=== PATIENT | male | born 1940 | race Caucasian/White ===

== ENCOUNTER 2020-08-21 11:29 | Outpatient (CLI) | payer MEDICARE, SELFPAY ==
[2020-08-21 11:51] LABS: Basophils Absolute Auto 0.06 K/mm3 (0.00-0.10); Basophils Percent Auto 0.4 % (0.0-1.0); Eosinophils Absolute Auto 0.12 K/mm3 (0.02-0.50); Eosinophils Percent Auto 0.8 % (1.0-6.0); Hematocrit 41.6 % (37.0-46.0); Hemoglobin 13.7 g/dL (12.4-15.3); Immature Granulocyte Absolute 0.15 K/mm3 (0.00-0.00); Lymphocytes Absolute Auto 1.69 K/mm3 (1.10-4.50); Lymphocytes Percent Auto 11.3 % (18.0-42.0); Mean Corpuscular HGB Conc 32.9 g/dL (32.0-36.0); Mean Corpuscular Hemoglobin 29.6 pg (27.0-31.0); Mean Corpuscular Volume 89.8 fL (78.0-102.0); Mean Platelet Volume 9.8 fl (8.7-11.0); Monocytes Absolute Auto 1.21 K/mm3 (0.10-0.90); Monocytes Percent Auto 8.1 % (2.0-11.0); Neutrophils Absolute Auto 11.7 K/mm3 (1.7-7.2); Neutrophils Percent Auto 78.4 % (50.0-70.0); Platelet Count Result 300 K/mm3 (150-420); Red Blood Count 4.63 M/mm3 (4.70-6.10); Red Cell Distribution Width 16.6 % (11.6-14.4)
[2020-08-21 12:09] LABS: Hemoglobin A1C 6.9 % (<5.7)
[2020-08-21 12:58] LABS: Alanine Aminotransferase 31 U/L (16-63); Albumin Level 3.7 g/dL (3.4-5.0); Alkaline Phosphatase 59 U/L (46-116); Anion Gap 15 mmol/L (8-16); Aspartate Amino Transferase 19 U/L (15-37); Bilirubin,Total 0.5 mg/dL (0.00-1.00); Blood Urea Nitrogen 31 mg/dL (7-18); Calcium 9.4 mg/dL (8.5-10.1); Carbon Dioxide 25 mmol/L (21-32); Chloride 104 mmol/L (98-108); Cholesterol 125 mg/dL (0-200); Estimated Glomerular Filt Rate 40; Glucose 162 mg/dL (70-99); HDL Direct 36 mg/dL (40-60); LDL Cholesterol Calculated 75 mg/dL (<130); Osmolality Calculated 308 mOsm/kg (285-295); Potassium 3.8 mmol/L (3.5-5.1); Sodium 144 mmol/L (136-145); Total Protein 6.7 g/dL (6.4-8.2); Triglycerides 70 mg/dL (0-150)
[2020-08-21 12:59] LABS: Thyroid Stimulating Hormone Reflex 1.36 u/IU/mL (0.36-3.74)
== END 2020-08-21 11:30 | disposition home or self-care (01) ==
LOC: CHSLAB 11:33
PROVIDERS: PCP Family Medicine; Visit Provider Family Medicine
DX: E11.9 Type 2 diabetes mellitus without complications (principal); I10 Essential (primary) hypertension
CPT/HCPCS: 36415; 80053; 80061; 83036; 84443; 85025

== ENCOUNTER 2023-10-25 09:31 | Emergency (ER) | payer MEDICARE, SELFPAY ==
--- NOTE | ~2023-10-25 | XR_ITS ---
EXAMINATION: XR foot LT min 3V DATE: 10/25/2023 10:20 INDICATION: Left foot injury. TECHNIQUE: 4 views of left foot were obtained. COMPARISON: None. FINDINGS: Bone alignment is normal. No fracture. There is diffuse osteopenia. There is severe osteoar thritis of first metatarsophalangeal joint. There are dystrophic calcifications around first metatars ophalangeal joint. There is mild osteoarthritis of some of the interphalangeal joints. There is an en thesophyte of posterior aspect of calcaneal tuberosity. IMPRESSION: 1. Polyarticular osteoarthritis. Reviewed, dictated and finalized at location A.
--- NOTE | ~2023-10-25 | XR_ITS ---
EXAMINATION: XR foot RT min 3V DATE: 10/25/2023 10:20 INDICATION: Right foot injury. TECHNIQUE: 4 views of right foot were obtained. COMPARISON: None. FINDINGS: Bone alignment is normal. No fracture. There is diffuse osteopenia. There is severe osteoar thritis of first metatarsophalangeal joint with loose body. There are dystrophic calcifications aroun d first metatarsophalangeal joint. There is an enthesophyte at plantar aspect of calcaneal tuberosity . IMPRESSION: 1. Severe osteoarthritis of first metatarsophalangeal joint with loose body. Reviewed, dictated and finalized at location A.
[2023-10-25 09:37] VITALS: BP 142/85; PULSE 127; RESP 14; TEMP 36.3; O2SAT 96
--- NOTE | 2023-10-25 09:53 | ED.WOUNDLAC ---
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 Patient states that he has nurses from [facility] come 3 times per week to apply dressings on his feet and legs, patient has some weeping form his legs noted with area lateral aspect of left leg with whitish open wound 2cm diameter with clear fluid drainage also. He has no open areas on feet bilateral large toenails deformed and left great toe nail loose and right great toenail has fungal appearance.Patient reports that he has had previous back surgery and his legs are weak and he gets around most of the time in wheelchair or motorized chair at home. Patient is diabetic and states that he has peripheral neuropathy to his feet reports this morning blood sugar was 192 per finger stick. Patient reports that he usually takes one pain pill in morning and one in PM only Onset (ago): day(s) (last night) Location: other (feet) Extremity Location: Right: foot Associated symptoms: loss of feeling/numbness (neuropathy) Related Data Home Medications Medication Instructions Recorded Confirmed atenolol 50 mg-chlorthalidone 25 1 tablet PO DAILY 08/21/20 01/13/21 mg tablet atorvastatin 20 mg tablet 20 mg PO DAILY 08/21/20 01/13/21 blood sugar diagnostic #10 ea 08/21/20 01/13/21 finasteride 5 mg tablet 5 mg PO DAILY 08/21/20 01/13/21 furosemide 20 mg tablet 20 mg PO DAILY 08/21/20 01/13/21 hydrocodone 10 mg-acetaminophen 2 tablet PO Q4-6H 08/21/20 01/13/21 325 mg tablet lisinopril 40 mg tablet 80 mg PO DAILY 08/21/20 01/13/21 metformin 500 mg tablet 500 mg PO 08/21/20 01/13/21 potassium chloride 20 mEq 20 meq PO DAILY 08/21/20 01/13/21 tablet,extended release(part/cryst) sitagliptin phosphate 50 mg tablet 50 mg PO DAILY 08/21/20 01/13/21 Allergies Allergy/AdvReac Type Severity Reaction Status Date / Time No Known Allergies Allergy Verified 05/12/21 07:38 Review of Systems Review of Systems: CONSTITUTIONAL: Denies fever, chills, or sweats. EYES: Denies visual changes, redness, or discharge. ENT: Denies rhinorrhea, congestion, sore throat, or otalgia. CARDIOVASCULAR: Denies chest pain, palpitations, or edema. RESPIRATORY: Denies cough or dyspnea. GASTROINTESTINAL: Denies abdominal pain, nausea, vomiting, or diarrhea. GENITOURINARY: Denies dysuria or hematuria. SKIN: positive for weeping tissue from bilateral legs with whitish open area left lateral leg. MUSCULOSKELETAL: Reports chronic lower back pain back and neuropathy to his bilateral feet or myalgia. NEUROLOGIC: Denies headache, numbness, or weakness. PSYCHIATRIC: Denies anxiety or depression. All systems reviewed & are unremarkable except as noted in HPI and below PMFSH Past Medical History Medical History Chronic back pain Chronic kidney disease (CKD) stage G3b/A1, moderately decreased glomerular filtration rate (GFR) between 30-44 mL/min/1.73 square meter and albuminuria creatinine ratio less than 30 mg/g Constipation due to opioid therapy Decreased appetite Edema of left lower extremity Fall at home Hip pain Hypertension Leukocytosis, unspecified Right knee pain Type 2 diabetes mellitus Surgical History Surgical History H/O arthroscopy of right knee History of back surgery Social History Social History Smoking status: Never smoker Alcohol intake: never Substance use: current Substance use type: opiates Last use: for chronic
--- NOTE | 2023-10-25 11:11 | PC.NURSE ---
Bilateral lower legs are both weeping. Skin tight. Does not keep legs elevated. Wounds cleansed with technicare, telfa and guaze applied.
== END 2023-10-25 11:13 | disposition home or self-care (01) ==
PROVIDERS: Emergency Provider Registered Nurse; PCP Family Medicine
DX: M79.672 Pain in left foot (principal); M79.671 Pain in right foot; L03.116 Cellulitis of left lower limb; L03.115 Cellulitis of right lower limb; E11.42 Type 2 diabetes mellitus with diabetic polyneuropathy; I12.9 Hypertensive chronic kidney disease with stage 1 through stage 4 chronic kidney disease, or unspecified chronic kidney disease; E11.22 Type 2 diabetes mellitus with diabetic chronic kidney disease; N18.32 Chronic kidney disease, stage 3b; Z79.84 Long term (current) use of oral hypoglycemic drugs
CPT/HCPCS: 73630; 99214; G0463

== ENCOUNTER 2023-12-12 11:00 | Emergency (ER) | payer MEDICARE, SELFPAY ==
--- NOTE | ~2023-12-12 | US_ITS ---
TESTICULAR ULTRASOUND (Doppler ultrasound interrogation techniques used as needed for this exam.) Ordering provider: Navi Zamora MD History: . bilateral scrotal swelling . Comparison: None. FINDINGS: TESTICLES: Normal in size. The right measures 3.7x 2.8x 2.7 cm and the left measures 4x 2.5x 2.8 cm. Normal echogenicity bilaterally without mass lesion. Normal Doppler flow bilaterally. Hypoechoic are a with hyperechoic center is seen in the left scrotal. EPIDIDYMIDES: Normal in size. The right measures 1 cm and the left 0.8 cm. Normal echogenicity bilat erally. Both demonstrate normal Doppler flow. Cyst is seen in the right epididymis measuring 0.6 x 5. 5 cm. HYDROCELE: Small right and moderate left VARICOCELE: None. OTHER ABNORMALITY: Edematous scrotal tissue. IMPRESSION: scrotal hypoechoic area with hyperechoic center which may indicate a mass versus a hematoma. Other di fferential is not excluded. Follow-up advised. Right epididymal cyst. Edematous scrotal wall Bilatera l hydrocele. Otherwise, normal testicular ultrasound. Reviewed, dictated and finalized at location A. IMPRESSION: scrotal hypoechoic area with hyperechoic center which may indicate a mass versu s a hematoma. Other differential is not excluded. Follow-up advised. Right epid idymal cyst. Edematous scrotal wall Bilateral hydrocele. Otherwise, normal test icular ultrasound.
[2023-12-12 11:00] VITALS: BP 170/94; PULSE 82; RESP 18; TEMP 36.2; O2SAT 96
--- NOTE | 2023-12-12 11:03 | ED.MALEGU ---
HPI - Male Genitourinary General Chief complaint: Urogenital-Male Stated complaint: testicular swelling Time Seen by Provider: 12/12/23 11:02 Source: patient Mode of arrival: ambulatory Limitations: no limitations History of Present Illness HPI Narrative: Patient is an 83-year-old male with a bilateral scrotal swelling for the past week. He uses a urinal plastic to urinate typically and he got himself a small nidus of opening from the plastic rim. It has started to swell and got worse over the past week. No fever or chills. No testicle pain. He can pull the penis through the swelling to urinate. Circumcised. Complaint: other ( Scrotal swelling bilaterally for 1 week) Onset (ago): week(s) (1) Duration: constant Location: right testicle ( scrotum) and left testicle ( scrotum) Severity: mild Severity scale (1-10): 1 Quality: dull Relieving factors: none Exacerbating factors: none Context: other ( patient uses a plastic urinal and appears that he has nipped the skin recently) Associated symptoms: Reports discharge ( nidus of infection area has slight discharge) Related Data Home Medications Medication Instructions Recorded Confirmed atorvastatin 20 mg tablet 20 mg PO DAILY 08/21/20 12/12/23 blood sugar diagnostic #10 ea 08/21/20 01/13/21 finasteride 5 mg tablet 5 mg PO DAILY 08/21/20 12/12/23 furosemide 20 mg tablet 20 mg PO DAILY 08/21/20 12/12/23 lisinopril 40 mg tablet 80 mg PO DAILY 08/21/20 12/12/23 metformin 500 mg tablet 500 mg PO DAILY 08/21/20 12/12/23 potassium chloride 20 mEq 20 meq PO DAILY 08/21/20 12/12/23 tablet,extended release(part/cryst) aspirin 81 mg tablet 81 mg PO DAILY 12/12/23 12/12/23 oxycodone-acetaminophen 10 mg-325 1 tablet PO BID 12/12/23 12/12/23 mg tablet tamsulosin 0.4 mg capsule 0.4 mg PO DAILY 12/12/23 12/12/23 Allergies Allergy/AdvReac Type Severity Reaction Status Date / Time No Known Allergies Allergy Verified 12/12/23 11:53 Review of Systems Review of Systems: All systems reviewed & are unremarkable except as noted in HPI and below Constitutional: Constitutional: Reports no additional constitutional complaints Eyes: Eyes: Reports no additional eye complaints ENT: Reports system reviewed and no additional complaints, except as documented Cardiovascular: Cardiovascular: Reports no additional cardiovascular complaints Respiratory: Respiratory: Reports no additional respiratory complaints Gastrointestinal: Gastrointestinal: Reports no additional gastrointestinal complaints Genitourinary: Genitourinary: Reports no additional male genitourinary complaints Musculoskeletal: Musculoskeletal: Reports no additional musculoskeletal complaints Integumentary/Breasts: Skin/Breast: Reports system reviewed and no additional complaints, except as docu Neurologic: Reports system reviewed and no additional complaints, except as documented Psychiatric: Psychiatric: Reports no additional psychiatric complaints Endocrine: Endocrine: Reports no additional endocrine complaints Hematologic/Lymphatic: Hematologic/Lymphatic: Reports no additional hematologic/lymphatic complaints Allergic/Immunologic: Allergic/Immunologic: Reports no additional allergic/immunologic complaints PMFSH Past Medical History Medical History Chronic back pain Chronic kidney disease (CKD) stage G3b/A1, moderately decreased glomerular filtration rate (GFR) between 30-44 mL/min/1.73 square meter and albuminuria creatinine ratio less than 30 mg/g Constipation due to opioid therapy Decreased appetite Edema of left lower extremity Fall at home Hip pain Hypertension Leukocytosis, unspecified Right knee pain Type 2 diabetes mellitus Surgical History Surgical History H/O arthroscopy of right knee History of back surgery Social History Social History (Reviewed 12/12/23 @ 11:30 by Navi Zamora
[2023-12-12] MEDS: predniSONE 20 MG TABLET 40 MG PO (12:02)
[2023-12-12 12:05] VITALS: BP 158/88; PULSE 85; RESP 16; TEMP 36.7; O2SAT 97
[2023-12-12] MEDS: cefTRIAXone 1 GM, LIDOCAINE HCL 1% LOCAL INJ 2.1 ML IM (12:05)
== END 2023-12-12 12:30 | disposition home or self-care (01) ==
PROVIDERS: Emergency Provider Emergency Medicine; PCP Family Medicine
DX: L03.314 Cellulitis of groin (principal); N50.89 Other specified disorders of the male genital organs; I12.9 Hypertensive chronic kidney disease with stage 1 through stage 4 chronic kidney disease, or unspecified chronic kidney disease; E11.22 Type 2 diabetes mellitus with diabetic chronic kidney disease; N18.32 Chronic kidney disease, stage 3b; Z79.899 Other long term (current) drug therapy; Z79.82 Long term (current) use of aspirin; Z79.891 Long term (current) use of opiate analgesic; Z79.84 Long term (current) use of oral hypoglycemic drugs
CPT/HCPCS: 76870; 93976; 96372; 99284; J0696; J2003; J7512

== ENCOUNTER 2023-12-14 15:42 | Emergency (ER) | payer MEDICARE, SELFPAY ==
[2023-12-14] VITALS (25 sets, daily range): BP systolic 126–184; BP diastolic 67–118; PULSE 78–93; RESP 12–31; TEMP 36.3; O2SAT 92–98
--- NOTE | ~2023-12-14 | XR_ITS ---
XR chest 1V portable Ordering provider: César Menendez MD History: 83 years Male with . edema . Comparison: None. FINDINGS: MEDIASTINUM: The cardiac silhouette is slightly enlarged. Congestive david. LUNGS: No infiltrates, effusions or pneumothorax. Bilateral interstitial changes. OTHER: No free air under the diaphragm. IMPRESSION: Cardiomegaly with congestive david and bilateral interstitial changes which may indicate congestive he art failure and pulmonary edema. Clinical correlation advised. Pneumonitis cannot be occluded. Reviewed, dictated and finalized at location A. IMPRESSION: Cardiomegaly with congestive david and bilateral interstitial changes which may indicate congestive heart failure and pulmonary edema. Clinical correlation adv ised. Pneumonitis cannot be occluded.
--- NOTE | 2023-12-14 16:22 | ECG_ITS ---
Test Date: 2023-12-14 16:50:57 Measurements Intervals [place] Rate: 79 P: 62 TN: 183 QRS: 11 QRSD: 93 T: 68 QT: 401 QTc: 460 Interpretive Statements SINUS RHYTHM WITH OCCASIONAL SUPRAVENTRICULAR PREMATURE COMPLEXES POSSIBLE RIGHT VENTRICULAR CONDUCTION DELAY [RSR (QR) IN V1/V2] ABNORMAL ECG No previous ECG available for comparison Electronically Signed On 12-18-2023 07:30:54 CDT by César Dunn M.D.
[2023-12-14 16:48] LABS: Basophils Absolute Auto 0.02 K/mm3 (0.00-0.10); Basophils Percent Auto 0.2 % (0.0-1.0); Eosinophils Absolute Auto 0.01 K/mm3 (0.02-0.50); Eosinophils Percent Auto 0.1 % (1.0-6.0); Hematocrit 28.7 % (37.0-46.0); Hemoglobin 9.1 g/dL (12.4-15.3); Immature Granulocyte Absolute 0.19 K/mm3 (0.00-0.00); Immature Granulocyte Percent A 1.5 % (0.0-0.0); Lymphocytes Absolute Auto 0.39 K/mm3 (1.10-4.50); Lymphocytes Percent Auto 3.1 % (18.0-42.0); Mean Corpuscular HGB Conc 31.7 g/dL (32-36); Mean Corpuscular Hemoglobin 24.9 pg (27.0-31.0); Mean Corpuscular Volume 78.4 fL (78.0-102.0); Mean Platelet Volume 9.4 fl (8.7-11.0); Monocytes Absolute Auto 0.42 K/mm3 (0.10-0.90); Monocytes Percent Auto 3.3 % (2.0-11.0); Neutrophils Absolute Auto 11.61 K/mm3 (1.70-7.20); Neutrophils Percent Auto 91.8 % (50.0-70.0); Platelet Count Result 380 K/mm3 (150-420); Red Blood Count 3.66 M/mm3 (4.70-6.10); Red Cell Distribution Width 16.6 % (11.6-14.4); White Blood Count 12.6 K/mm3 (4.8-10.8)
[2023-12-14 17:07] LABS: Lactic Acid Reflex 2.5 mmol/L (0.4-2.0)
[2023-12-14 17:16] LABS: Alanine Aminotransferase 20 U/L (16-63); Albumin Level 2.7 g/dL (3.4-5.0); Alkaline Phosphatase 72 U/L (46-116); Anion Gap 10 mmol/L (4-12); Aspartate Amino Transferase 48 U/L (15-37); Bilirubin,Total 0.7 mg/dL (0.00-1.00); Blood Urea Nitrogen 75 mg/dL (7-18); Calcium 8.4 mg/dL (8.5-10.1); Carbon Dioxide 29 mmol/L (21-32); Chloride 102 mmol/L (98-108); Estimated CRCL calculation 21 ml/min; Estimated Glomerular Filt Rate 25; Glucose 175 mg/dL (70-99); Osmolality Calculated 318 mOsm/kg (285-295); Potassium 4.8 mmol/L (3.5-5.1); Sodium 141 mmol/L (136-145); Total Protein 6.1 g/dL (6.4-8.2)
[2023-12-14 17:19] LABS: CRP 0.8 mg/dL (0.0-0.9); NT Pro B Type Natriuretic Pept 25150 pg/mL (0-450)
[2023-12-14 17:39] LABS: Add Urine Microscopic? YES; Appearance Urine Clear (Clear); Bilirubin Urine Negative (Negative); Blood Urine Trace-intact (Negative); Color Urine Light Yellow (Yellow); Glucose Urine UA Negative (Negative); Ketones Urine Negative (Negative); Leukocyte Esterase Ur Negative LEU/UL (Negative); Nitrate Urine Negative (Negative); Protein Urine Trace (Negative); Urobilinogen Urine 0.2 mg/dL (0.2-1.0); pH Urine 5.5 (5.0-8.0)
[2023-12-14 17:47] LABS: Bacteria Urine Trace /hpf; Hyaline Casts Urine 0-2 /lpf; RBC Urine 0-2 /hpf (0-2); Squamous Epithelial Cell Urine None seen /hpf (Few); WBC Urine 0-3 /hpf (0-3)
[2023-12-14] MEDS: ASPIRIN 81 MG CHEWABLE TABLET 324 MG PO (18:02)
[2023-12-14] MEDS: PANTOPRAZOLE SODIUM IV 40 MG VIAL 80 MG IV PUSH (18:02)
[2023-12-14] MEDS: FUROSEMIDE INJ 40 MG/4 ML VIAL IV PUSH (18:37)
[2023-12-14 18:46] LABS: Reflex Lactic Acid Yes or No Add Lactic
[2023-12-14 19:09] LABS: Troponin I 101.7 ng/L (0.00-60.4)
--- NOTE | 2023-12-14 19:11 | ED.WEAKNESS ---
HPI - Weakness General Chief complaint: Weakness Stated complaint: swelling Time Seen by Provider: 12/14/23 15:46 Source: patient and family Mode of arrival: wheelchair Limitations: no limitations History of Present Illness HPI Narrative: this is an 83-year-old male with a history of chronic wound secondary to lower extremity edema with history of diabetes with hypertension, patient with some generalized weakness and has not been able to follow-up with his doctor because it was difficult for family to get him out of and into a vehicle. Presents to the ER with some generalized weakness, swelling in his lower extremities and into his lower back and testicles. There is currently no shortness of breath, but does have some what he describes as heartburn, denies chest pain or pressure no fever chills no nausea vomiting. Complaint: generalized weakness Onset (ago): week(s) Duration: constant Location: generalized Severity: moderate Relieving factors: none Exacerbating factors: none Related Data Home Medications Medication Instructions Recorded Confirmed atorvastatin 20 mg tablet 20 mg PO DAILY 08/21/20 12/14/23 blood sugar diagnostic #10 ea 08/21/20 12/14/23 finasteride 5 mg tablet 5 mg PO DAILY 08/21/20 12/14/23 furosemide 20 mg tablet 20 mg PO DAILY 08/21/20 12/14/23 lisinopril 40 mg tablet 80 mg PO DAILY 08/21/20 12/14/23 metformin 500 mg tablet 500 mg PO DAILY 08/21/20 12/14/23 potassium chloride 20 mEq 20 meq PO DAILY 08/21/20 12/14/23 tablet,extended release(part/cryst) aspirin 81 mg tablet 81 mg PO DAILY 12/12/23 12/14/23 tamsulosin 0.4 mg capsule 0.4 mg PO DAILY 12/12/23 12/14/23 albuterol sulfate 90 mcg/actuation See Rx Instructions .Route .COMPLEX 12/14/23 12/14/23 aerosol inhaler Allergies Allergy/AdvReac Type Severity Reaction Status Date / Time No Known Allergies Allergy Verified 12/14/23 16:55 Review of Systems Review of Systems: All systems reviewed & are unremarkable except as noted in HPI and below PMFSH Past Medical History Medical History Chronic back pain Chronic kidney disease (CKD) stage G3b/A1, moderately decreased glomerular filtration rate (GFR) between 30-44 mL/min/1.73 square meter and albuminuria creatinine ratio less than 30 mg/g Constipation due to opioid therapy Decreased appetite Edema of left lower extremity Fall at home Hip pain Hypertension Leukocytosis, unspecified Right knee pain Type 2 diabetes mellitus Surgical History Surgical History H/O arthroscopy of right knee History of back surgery Social History Social History Smoking status: Never smoker Alcohol intake: never Substance use: current Substance use type: opiates Last use: for chronic pain Living arrangements: alone Occupation/Education: retired Gender identity (if verbalized by the patient): Male Exam Const: General: no acute distress Nutritional Appearance: obese Orientation/consciousness: patient oriented x3 Limitations: physical limitations Eyes: Conjunctivae: conjunctivae normal Pupils: Equal, round and reactive pupils present Neck: Neck: normal visual inspection, no lymphadenopathy and no meningeal signs Chest: Chest palpation & inspection: normal inspection of the chest Resp: Effort & Inspection: normal respiratory effort Auscultation: clear to auscultation bilaterally Cardio: Rate: regular rate Rhythm: regular rhythm GI: GI Palp: Yes Soft to palpation Auscultation: normal bowel sounds : General: Yes bladder normal to palpation Skin: Wounds: wounds noted Neuro: General: patient oriented x3 Cranial nerves: Yes Nystagmus not present Extrem: General: edema Course Course Emergency Course: Patient presents with generalized weakness and lower extremity edema blood work performed shows a BNP o
[2023-12-14 21:16] LABS: Glucose Point of Care 192 mg/dl (65-105)
--- NOTE | 2023-12-14 23:52 | PC.NURSE ---
PT' FAMILY EXPRESSED CONCERNS REGARDING PINK TINGED URINE AND CHF. DR CORRAL TO BS TO DISCUSS WITH FAMILY.
[2023-12-15 00:01] VITALS: BP 131/81; PULSE 76; RESP 15; TEMP 37.1; O2SAT 94
--- NOTE | 2023-12-16 13:51 | PC.NURSE ---
blood culture reports x2 reviewed, preliminary reports show no growth to date
--- NOTE | 2023-12-17 14:19 | PC.NURSE ---
preliminary blood cultures x2 reviewed. no growth to date.
--- NOTE | 2023-12-20 12:17 | PC.NURSE ---
FINAL BLOOD CULTURE RESULTS X2: NO GROWTH AFTER 5 DAYS.
== END 2023-12-15 00:35 | disposition short-term general hospital (02) ==
PROVIDERS: Emergency Provider Emergency Medicine; PCP Family Medicine
DX: R60.1 Generalized edema (principal); R79.89 Other specified abnormal findings of blood chemistry; I13.0 Hypertensive heart and chronic kidney disease with heart failure and stage 1 through stage 4 chronic kidney disease, or unspecified chronic kidney disease; I50.9 Heart failure, unspecified; E11.22 Type 2 diabetes mellitus with diabetic chronic kidney disease; N18.32 Chronic kidney disease, stage 3b; Z79.84 Long term (current) use of oral hypoglycemic drugs; Z79.899 Other long term (current) drug therapy
CPT/HCPCS: 36415; 71045; 80053; 81001; 82948; 83605; 83880; 84484; 85025; 86140; 87040; 93005; 96374; 96375; 99285; A9270; J1940; J2470

== ENCOUNTER 2023-12-15 00:12 | Inpatient (IN) | payer MEDICARE, SELFPAY ==
[2023-12-15] VITALS (18 sets, daily range): BP systolic 134–152; BP diastolic 58–75; PULSE 70–85; RESP 0–20; TEMP 36.7–36.9; O2SAT 97–100; BMI 31.6
--- NOTE | 2023-12-15 | ECHO_ITS ---
Patient Info Name: Sachin Shaw Age: 83 years : 1940 Gender: Male Ht: 70 in Wt: 220 lbs BSA: 2.25 m2 HR: 70 bpm BP: 144 / 75 mmHg Heart Rhythm: Sinus Rhythm Technical Quality: Good Exam Date: 12/15/2023 10:06 AM Exam Location: Echo Lab Patient Status: Inpatient Admit Date: 12/15/2023 Staff Ordering Physician: Ebonie Davis MD Header Boss: Mack Oshea RDCS Attending Provider: Ebonie Davis MD Referring Physician: Susan LAUGHLIN; Exam Type: CA echo doppler color flow Study Info Indications - SWELLING Complete two-dimensional, color flow and Doppler transthoracic echocardiogram is performed. Summary 1. Complete two-dimensional, color flow and Doppler transthoracic echocardiogram is performed. 2. The left ventricle is normal size. There is moderate concentric left ventricular hypertrophy. The left ventricular systolic function is moderately reduced. LVEF is estimated to be 35-40%. 3. The aortic valve is sclerotic. There is no aortic stenosis or aortic regurgitation. It is difficult to determine the number of leaflets in this study. Left Ventricle The left ventricle is normal size. There is moderate concentric left ventricular hypertrophy. The left ventricular systolic function is moderately reduced. LVEF is estimated to be 35-40%. Right Ventricle The right ventricle is normal size with reduced systolic function. Left Atria The left atrium is normal size. Right Atria The right atrium is normal size. Aortic Valve The aortic valve is sclerotic. There is no aortic stenosis or aortic regurgitation. It is difficult to determine the number of leaflets in this study. Pulmonic Valve The pulmonic valve is normal. There is trace pulmonic valve regurgitation. Mitral Valve The mitral valve is sclerotic. There is mild mitral regurgitation. Tricuspid Valve The tricuspid valve is normal. Pericardium/Pleural Pericardium is normal in appearance with no evidence for significant pericardial effusion. Inferior Vena Cava Inferior vena cava is not well visualized. Left Ventricular Outflow Tract Name Value Normal LVOT 2D LVOT Diameter 2.2 cm LVOT Doppler LVOT Peak Gradient 4 mmHg LVOT Mean Gradient 2 mmHg LVOT VTI 16 cm LVOT VTI/AV VTI Ratio 0.7 LVOT Stroke Volume 61 ml LVOT CO 3.8 l/min LVOT CI 1.7 l/min/m2 Pulmonic Valve Name Value Normal PV Doppler PV Peak Gradient 2 mmHg Mitral Valve Name Value Normal MV Doppler MV Decel [place] 500 cm/s2
--- NOTE | ~2023-12-15 | MR_ITS ---
EXAMINATION: MR lumbar spine wo con DATE: 12/17/2023 07:47 INDICATION: Low back pain with lower extremity weakness TECHNIQUE: Magnetic resonance imaging (MRI) of the lumbar spine was performed without intravenous con trast. Sequences included sagittal T2-weighted FSE, sagittal T2-weighted FS FSE, sagittal T1-weighted FSE, and axial T2-weighted FSE. COMPARISON: None FINDINGS: 15 degrees lumbar levoscoliosis. 4 mm anterolisthesis T11 on T12, 4 mm retrolisthesis L1 on L3, 4 mm retrolisthesis L2 on L3, 2 mm anterolisthesis L4 on L5 and a millimeter retrolisthesis L5 on S1. Ther e is also a 6 mm left lateral listhesis L3 on L4. Severe right-sided predominant disc height loss at L2-L3 and L3-L4 with associated degenerative endplate remodeling resulting in mild right-sided verteb ral body height loss at L2 and L3. There is also mild associated fibrovascular degenerative endplate changes at L2-L3 and L3-L4. Severe disc height loss at L5-S1, moderate disc height loss at T12-L1, L1 -L2 and mild disc height loss at L4-L5. Marrow signal is otherwise unremarkable. The conus medullaris terminates at L1. Increased cord signal likely related to severe central canal stenosis and secondar y myelomalacia at T11-T12. See separate thoracic spine report for further detail.. Paravertebral soft tissues are unremarkable. The following disc levels are specifically discussed: T12-L1: Disc is bulging. There is severe bilateral facet joint osteoarthritis. There is mild right an d moderate left neural foraminal stenosis. There is mild central canal stenosis. L1-L2: Disc is bulging with annular fissure. There is moderate bilateral facet joint osteoarthritis. There is moderate left and moderate to severe right neural foraminal stenosis. There is moderate to s evere central canal stenosis. L2-L3: Disc is bulging with annular fissure. There is hypertrophy of the ligamentum flavum. There is moderate bilateral facet joint osteoarthritis. There is moderate left and severe right neural forami nal stenosis. There is severe central canal stenosis. L3-L4: Disc is bulging with annular fissure. There is moderate to severe left and severe right facet joint osteoarthritis. There is moderate bilateral neural foraminal stenosis. There is moderate centra l canal stenosis. L4-L5: Disc is bulging with annular fissure. There is severe bilateral facet joint osteoarthritis. Th ere is moderate to severe bilateral neural foraminal stenosis. There is mild central canal stenosis. L5-S1: Disc is bulging with annular fissure. There is moderate right and severe left facet joint oste oarthritis. There is moderate to severe bilateral neural foraminal stenosis. There is no central tommy l stenosis. IMPRESSION: 1. 15 degrees lumbar levoscoliosis with severe spondylosis. Reviewed, dictated and finalized at location A.
--- NOTE | ~2023-12-15 | US_ITS ---
EXAMINATION: US renal BI DATE: 12/15/2023 09:01 INDICATION: Acute renal insufficiency TECHNIQUE: Multiple ultrasound grayscale images of the kidneys were obtained. COMPARISON: None. FINDINGS: The right kidney measures 10.6 x 5.9 x 5.8 cm. The left kidney measures 11.6 x 6.0 x 5.6 cm. The kidn eys demonstrate normal echogenicity. There is no hydronephrosis in either kidney. No stones identifi ed. The bladder is nonvisualized, likely decompressed with a Walter catheter reportedly in place. IMPRESSION: 1. Normal kidneys without hydronephrosis. Reviewed, dictated and finalized at location A.
--- NOTE | ~2023-12-15 | XR_ITS ---
EXAMINATION: XR chest 1V portable DATE: 12/15/2023 12:49 INDICATION: Congestive heart failure. TECHNIQUE: A single frontal view of the chest was obtained. COMPARISON: Chest single view 12/14/2023 FINDINGS: There is a diffuse interstitial pattern in the lungs, consistent mild pulmonary edema. No p leural effusion or pneumothorax. The heart size is normal. IMPRESSION: 1. Mild pulmonary edema. Reviewed, dictated and finalized at location A. IMPRESSION: 1. Mild pulmonary edema.
--- NOTE | ~2023-12-15 | MR_ITS ---
EXAMINATION: MR cervical spine wo con DATE: 12/17/2023 07:47 INDICATION: Back pain with lower extremity weakness TECHNIQUE: Magnetic resonance imaging (MRI) of the cervical spine was performed without intravenous c ontrast. Sequences included sagittal T2-weighted FSE, sagittal T2-weighted FS FSE, sagittal T1-weight ed FSE, axial MERGE and axial T2-weighted FSE. COMPARISON: None FINDINGS: Straightening of the normal cervical lordosis. Vertebral body heights are normal. Severe disc height loss at C5-C6 and moderate disc height loss at C6-C7 with minimal fibrovascular degenerative endplat e changes anteriorly at both levels. Marrow signal is otherwise unremarkable. Disc desiccation withou t significant disc height loss at the remaining cervical levels. Small region of increased T2 signal slightly to the right of the center of the cord at the level of C4-C5 and measuring up to 2 mm in ma ximal transaxial dimension. Cervical soft tissues are unremarkable. The following disc levels are spe cifically discussed: C2-C3: The disc does not extend beyond the endplate margin. There is no uncovertebral joint osteoarth ritis. There is moderate left and severe right facet joint osteoarthritis. There is mild left and min imal right neural foraminal stenosis. There is no central canal stenosis. C3-C4: Disc is bulging. There is mild left uncovertebral joint osteoarthritis. There is moderate righ t and severe left facet joint osteoarthritis. There is moderate left and mild to moderate right neura l foraminal stenosis. There is mild central canal stenosis measuring 9 mm AP in the mid sagittal plan e and with slight indention of the ventral surface of the cord. C4-C5: Disc is bulging. There is mild bilateral uncovertebral joint osteoarthritis. There is mild rig ht and severe left facet joint osteoarthritis. There is mild right and moderate left neural foraminal stenosis. There is mild central canal stenosis. C5-C6: Disc is bulging with superimposed annular fissure and right paracentral disc extrusion with di sc material extending up to 4 mm cephalad to the level of the inferior endplate of C5. There is sever e bilateral uncovertebral joint osteoarthritis. There is mild right and moderate left facet joint ost eoarthritis. There is moderate bilateral, left greater than right neural foraminal stenosis. There is mild central canal stenosis but with prominent mass effect with indentation of the right ventral coral face of the cord resulting from the disc extrusion. C6-C7: Disc is bulging. There is severe bilateral uncovertebral joint osteoarthritis. There is mild r ight and moderate left facet joint osteoarthritis. There is moderate bilateral neural foraminal steno sis. There is mild central canal stenosis flattening of the ventral surface of the cord. C7-T1: The disc does not extend beyond the endplate margin. There is mild right and moderate left unc overtebral joint osteoarthritis. There is severe bilateral facet joint osteoarthritis. There is mild right and mild to moderate left neural foraminal stenosis. There is no central canal stenosis. IMPRESSION: 1. Severe cervical spondylosis greatest at C5-C6 and C6-C7 with prominent right paracentral disc extr usion at the former level which significantly indents the right ventral surface of the cord. 2. small focus of increased T2 signal at the right side of the cord at the level of C4-C5 likely rela hieu to myelomalacia. Reviewed, dictated and finalized at location A. IMPRESSION: 1. Severe cervical spondylosis greatest at C5-C6 and C6-C7 with prominent right paracentral disc extrusion at the former level which significantly indents the right ventral surface of the cord. 2. small focus of increased T2 signal at the right side of the cord at the leve l of C4-C5 likely re
--- NOTE | ~2023-12-15 | MR_ITS ---
EXAMINATION: MR thoracic spine wo con DATE: 12/17/2023 07:47 INDICATION: Back pain with lower extremity weakness TECHNIQUE: Magnetic resonance imaging (MRI) of the thoracic spine was performed without intravenous c ontrast. Sagittal localizer T1-weighted FSE of the cervicothoracic spine was obtained. Thoracic spine sequences included sagittal T2-weighted FSE, sagittal T1-weighted SE, Sagittal T2-weighted FS FSE, a nd axial T2-weighted FSE. COMPARISON: None FINDINGS: Mild S-shaped thoracic scoliosis with 12 degrees upper thoracic levocurvature and 15 degrees mid to l ower thoracic dextrocurvature. 4 mm anterolisthesis T11 on T12. Vertebral body heights are normal. No rmal marrow signal.Moderate to severe disc height loss at T8-T9 and T9-T10, moderate to severe left s estrada predominant disc height loss at T11-T12, moderate disc height loss [id number], T7-T8and with left- sided predominance atT5-T6, T6-T7and T7-T8and with right-sided predominance atT3-T4. Mild disc height loss at the remaining thoracic levels. Additional severe disc height loss at C7-T1. Along with the anterolisthesis of T11 on T12 there is annular fissure and disc bulge along with sever e bilateral facet osteoarthritis contributing to the severe central canal stenosis at this level. The re is associated increased T2 signal in the cord at this level with likely secondary myelomalacia. Th e remainder of the thoracic spinal cord signal is normal. Left T2-T3 paracentral disc protrusion which mildly indents the ventral surface of the cord with mild central canal stenosis. Minimal central disc protrusion at T3-T4 without central canal stenosis. [place] ular fissure with right paracentral disc extrusion at T7-T8 with disc material extending 6 cm cephala d to the inferior endplate of T7 and 8 mm caudal to the superior endplate of T8. This indents the rig ht ventral surface of the cord and mild central canal stenosis. Minimal central disc protrusion witho ut central canal stenosis at T8-T9. Disc bulges resulting in mild central canal stenosis at T9-T10, T 10-T11 and T12-L1. There is multilevel moderate upper thoracic to severe lower thoracic facet osteoarthritis. This contr ibutes to moderate neural foraminal stenosis on the at T7-T8 and bilaterally at T8-T9, T9-T10 and T10 -T11 and severe bilateral neural foraminal stenosis at T11-T12. Additional multilevel mild neural fro m stenosis in the more cephalad thoracic spine. Small bilateral posterior layering pleural effusions. Paravertebral soft tissues are unremarkable. IMPRESSION: 1. Mild S-shaped scoliosis of the thoracic spine with moderate to severe spondylosis. 2. 4 mm anterolisthesis T11 on T12 together with disc bulge and severe bilateral facet osteoarthritis contributes to severe central canal stenosis at this level with small focus of increased T2 cord sig nal at this level consistent with secondary myelomalacia. 3. Small bilateral posterior layering pleural effusions. Reviewed, dictated and finalized at location A. IMPRESSION: 1. Mild S-shaped scoliosis of the thoracic spine with moderate to severe spondy losis. 2. 4 mm anterolisthesis T11 on T12 together with disc bulge and severe bilatera l facet osteoarthritis contributes to severe central canal stenosis at this lev el with small focus of increased T2 cord signal at this level consistent with s econdary myelomalacia. 3. Small bilateral posterior layering pleural effusions.
--- NOTE | 2023-12-15 01:40 | ADMGEN ---
0114: his patient, Sachin Shaw, was admitted to IMU Room 210-01. Patient/family oriented to hospital policies and general routines including ID bracelet, bed and alarms, visiting hours, pain management, procedures, bathroom and other care routines, personal items, smoking policy, room service/diet, and visiting hours. Information on how to activate the Rapid Response Team has been discussed. Patient/Family are encouraged to report perceived risks to care and to ask questions if they do not understand what they are told or what they should do.
[2023-12-15 02:48] LABS: Basophils Percent Auto 0.1 % (0.2-1.2); Hematocrit 28.2 % (42.0-52.0); Hemoglobin 8.9 g/dL (14.0-18.0); Immature Granulocyte Absolute 0.13 K/mm3 (0.00-0.031); Lymphocytes Absolute Auto 0.99 K/mm3 (0.9-3.2); Lymphocytes Percent Auto 7.4 % (18.3-44.2); Mean Corpuscular HGB Conc 31.6 g/dl (32-36); Mean Corpuscular Hemoglobin 24.8 pg (26-34); Mean Corpuscular Volume 78.6 fl (80-100); Mean Platelet Volume 9.5 fl (7.4-10.4); Monocytes Percent Auto 7.7 % (2.6-8.5); Neutrophils Absolute Auto 11.2 K/mm3 (1.3-6.7); Neutrophils Percent Auto 83.8 % (45.5-73.1); Platelet Count Result 379 k/mm3 (150-375); Red Blood Count 3.59 M/mm3 (4.6-6.20); Red Cell Distribution Width 16.5 % (11.5-14.5); White Blood Count 13.3 K/mm3 (4.5-10.0)
[2023-12-15 02:57] LABS: Anion Gap 10 mmol/L (4-12); Blood Urea Nitrogen 72 mg/dL (9-20); Calcium 8.8 mg/dL (8.4-10.2); Carbon Dioxide 29 mmol/L (22-30); Chloride 100 mmol/L (98-107); Estimated CRCL calculation 28 ml/min; Estimated Glomerular Filt Rate 30; Glucose 148 mg/dL (65-110); Magnesium 1.8 mg/dL (1.6-2.3); Potassium 4.1 mmol/L (3.4-5.0); Sodium 139 mmol/L (137-145)
[2023-12-15 02:59] LABS: INR 1.4; Partial Thromboplastin Time 30.1 Seconds (22.3-36.8); Prothrombin Time 17.4 Seconds (11.1-14.7)
[2023-12-15 03:13] LABS: Troponin I 0.122 ng/mL (0.000-0.034)
[2023-12-15 06:31] LABS: Troponin I 0.125 ng/mL (0.000-0.034)
[2023-12-15 07:12] LABS: Glucose Point of Care 123 mg/dl (65-105)
[2023-12-15 09:13] LABS: Troponin I 0.128 ng/mL (0.000-0.034)
[2023-12-15 09:25] LABS: Hemoglobin A1C 7.1 % (<5.7)
[2023-12-15] MEDS: ATORVASTATIN 20 MG TABLET PO (09:36)
[2023-12-15] MEDS: FINASTERIDE 5 MG TABLET PO (09:36)
[2023-12-15] MEDS: ASPIRIN 81 MG ENTERIC TABLET PO (09:36)
[2023-12-15] MEDS: TAMSULOSIN HCL 0.4 MG CAPSULE PO (09:37)
[2023-12-15] MEDS: ACETAMINOPHEN 325 MG TABLET 650 MG PO ×2 (09:37→21:27)
--- NOTE | 2023-12-15 09:45 | PM.CNCAR ---
Assessment and Plan Assessment and plan (1) Systolic dysfunction with heart failure: Code(s): I50.20 - Unspecified systolic (congestive) heart failure Status: Acute Assessment and Plan: Presents with acute decompensated heart failure. He does have left ventricular systolic dysfunction with an EF of 35-40%. This is a new diagnosis for him. Continue IV furosemide 40 mg b.i.d. Will initiate GDMT with Toprol XL 25mg daily, jardiance 10mg daily. Because of JACQUELINE on CKD, will hold off on KIANNA/ARNI and spironolactone for now. Ideally, would like to add these to his regimen as well Can discuss ischemic evaluation as an outpatient Daily weights Strict I&O CHF counseling Daily BMP while diuresing (2) Elevated troponin: Code(s): R79.89 - Other specified abnormal findings of blood chemistry Status: Acute Assessment and Plan: Mildly elevated and flat, not consistent with ACS. Likely elevated secondary to CKD, CHF (3) Edema of left lower extremity: Code(s): R60.0 - Localized edema Status: Acute Assessment and Plan: Improving with diuresis (4) Hypertension: Code(s): I10 - Essential (primary) hypertension Status: Acute Assessment and Plan: Currently at goal. History of Present Illness History of Present Illness Consult date/time: 12/15/23 09:45 Requesting physician: Ebonie Davis MD Consult reason: congestive heart failure Reason For Visit: CHF, Anasarca,elevated trop Narrative: Sachin Shaw is an 83-year-old male who is admitted to the hospital for leg weakness, lower extremity edema and scrotal edema. He has a history chronic wounds secondary to his chronic edema. He also has diabetes and hypertension. Cardiology has been consulted for congestive heart failure. Patient does report worsening lower extremity swelling over the past week. He is also been experiencing shortness of breath and paroxysmal nocturnal dyspnea. He denies any chest pain, palpitations, orthopnea, or syncope. He denies having history of congestive heart failure or any other cardiac problems. He does not have any active complaints at the time of my evaluation. Review of Systems Review of Systems: All systems reviewed & are unremarkable except as noted in HPI and below PMFSH Past Medical History Medical History Chronic back pain Chronic kidney disease (CKD) stage G3b/A1, moderately decreased glomerular filtration rate (GFR) between 30-44 mL/min/1.73 square meter and albuminuria creatinine ratio less than 30 mg/g Constipation due to opioid therapy Decreased appetite Edema of left lower extremity Fall at home Hip pain Hypertension Leukocytosis, unspecified Right knee pain Type 2 diabetes mellitus Surgical History Surgical History H/O arthroscopy of right knee History of back surgery Social History Social History Smoking status: Never smoker Alcohol intake: never Substance use: never Substance use type: does not use Last use: for chronic pain Do You Feel Safe in your Home?: Yes Lack of Transportation: No Lack of Food: Never True Current Housing: I Have Housing Concerned About Future Housing: No Difficulty Paying Gas/Electric Bills: No Difficulty Paying for Meds: No Currently Unemployed: No Education: Decline to Answer Difficulty w/ Childcare or Family Care: No Living arrangements: alone Occupation/Education: retired Gender identity (if verbalized by the patient): Male Spiritual care concerns: No Meds Home Medications and Allergies Home Medications Medication Instructions Recorded Confirmed Type atorvastatin 20 mg tablet 20 mg PO DAILY 08/21/20 12/15/23 History finasteride 5 mg tablet 5 mg PO DAILY 08/21/20 12/15/23 History furosemide 20 mg tablet 20 mg
[2023-12-15 11:09] LABS: Magnesium 1.9 mg/dL (1.6-2.3)
[2023-12-15 11:57] LABS: Lactic Acid Reflex 1.4 mmol/L (0.7-2.0)
[2023-12-15 12:03] LABS: Glucose Point of Care 144 mg/dl (65-105)
[2023-12-15] MEDS: METOPROLOL SUCCINATE EXT REL 25 MG TABCR PO (16:04)
[2023-12-15] MEDS: FUROSEMIDE INJ 40 MG/4 ML VIAL IV PUSH ×2 (16:05→17:31)
[2023-12-15] MEDS: EMPAGLIFLOZIN 10 MG TABLET PO (16:05)
[2023-12-15 16:33] LABS: Glucose Point of Care 177 mg/dl (65-105)
--- NOTE | 2023-12-15 16:43 | PM.IMHP ---
H&P: HPI History of Present Illness Date/Time: 12/15/23 16:43 Chief Complaint: Worsening scrotal swelling Narrative: 83-year-old male past medical history of CHF, chronic wounds, type 2 diabetes, hypertension presented to the ED on account of worsening scrotal swelling. Patient is a poor history historian and unable to provide a clear history other then he was brought in due to worsening scrotal swelling. Noted he is wheelchair bound. ER evaluation notable for temperature 98.5?, rate 72, respiratory rate 18, saturating % on room blood pressure 137/75. White count 13.3, hemoglobin 8.8, MCV 78.6, creatinine 2.1 which is baseline, troponin 0.122 increased to 0.128. Chest x-ray showed mild pulmonary edema. Patient is admitted for further evaluation care. undergo a GI evaluation noted, placed on diuresis, troponin is flat and suspicion of acute syndrome. Per cardiology. Review of Systems Review of Systems: Unable to do review of systems as patient is a poor historian [facility] Past Medical History Medical History Chronic back pain Chronic kidney disease (CKD) stage G3b/A1, moderately decreased glomerular filtration rate (GFR) between 30-44 mL/min/1.73 square meter and albuminuria creatinine ratio less than 30 mg/g Constipation due to opioid therapy Decreased appetite Edema of left lower extremity Fall at home Hip pain Hypertension Leukocytosis, unspecified Right knee pain Type 2 diabetes mellitus Surgical History Surgical History H/O arthroscopy of right knee History of back surgery Social History Social History Smoking status: Never smoker Alcohol intake: never Substance use: never Substance use type: does not use Last use: for chronic pain Do You Feel Safe in your Home?: Yes Lack of Transportation: No Lack of Food: Never True Current Housing: I Have Housing Concerned About Future Housing: No Difficulty Paying Gas/Electric Bills: No Difficulty Paying for Meds: No Currently Unemployed: No Education: Decline to Answer Difficulty w/ Childcare or Family Care: No Living arrangements: alone Occupation/Education: retired Gender identity (if verbalized by the patient): Male Spiritual care concerns: No Meds Home Medications and Allergies Home Medications Medication Instructions Recorded Confirmed Type atorvastatin 20 mg tablet 20 mg PO DAILY 08/21/20 12/15/23 History finasteride 5 mg tablet 5 mg PO DAILY 08/21/20 12/15/23 History furosemide 20 mg tablet 20 mg PO DAILY 08/21/20 12/15/23 History lisinopril 40 mg tablet 80 mg PO DAILY 08/21/20 12/15/23 History metformin 500 mg tablet 500 mg PO DAILY 08/21/20 12/15/23 History potassium chloride 20 mEq 20 meq PO DAILY 08/21/20 12/15/23 History tablet,extended release(part/cryst) aspirin 81 mg tablet 81 mg PO DAILY 12/12/23 12/15/23 History levofloxacin 500 mg tablet 500 mg PO DAILY 10 days #10 tabs 12/12/23 12/15/23 Rx tamsulosin 0.4 mg capsule 0.4 mg PO DAILY 12/12/23 12/15/23 History albuterol sulfate 90 mcg/actuation 1 - 2 puff inhalation Q4H PRN 12/14/23 12/15/23 History aerosol inhaler Shortness Of Breath Or Wheezing Allergies Allergy/AdvReac Type Severity Reaction Status Date / Time oxycodone [From OxyContin] Allergy Itching Verified 12/15/23 01:58 Vital Signs Vital Signs - 24 hr 12/15/23 01:14 12/15/23 02:00 12/15/23 04:13 Temperature 98.1 F 98.2 F Pulse Rate 83 78 72 Respiratory Rate 20 20 Blood Pressure 152/69 H 144/75 H Pulse Oximetry 98 99 Oxygen Delivery 12/15/23 04:00 12/15/23 05:56 12/15/23 07:45 Temperature 98.3 F Pulse Rate 71 70 71 Respiratory Rate 0 L Blood Pressure 136/65 Pulse Oximetry 99 Oxygen Delivery 12/15/23 11:01 12/15/23 08:00 12/15/23 08:00 Temperature 98.5 F Pulse Rate
[2023-12-15 20:17] LABS: Glucose Point of Care 168 mg/dl (65-105)
[2023-12-15] MEDS: oxyCODONE/ACETAMINOPHEN (*CRX) 5-325 MG TABLET 1 TABLET PO (23:54)
[2023-12-16] VITALS (19 sets, daily range): BP systolic 133–165; BP diastolic 49–85; PULSE 66–85; RESP 16–20; TEMP 36.7–37; O2SAT 94–100
[2023-12-16 04:44] LABS: Basophils Percent Auto 0.3 % (0.2-1.2); Eosinophils Absolute Auto 0.1 K/mm3 (0-0.3); Eosinophils Percent Auto 0.9 % (0-4.4); Hematocrit 27.5 % (42.0-52.0); Hemoglobin 8.6 g/dL (14.0-18.0); Immature Granulocyte Absolute 0.08 K/mm3 (0.00-0.031); Immature Granulocyte Percent A 0.8 % (0-0.5); Lymphocytes Absolute Auto 1.06 K/mm3 (0.9-3.2); Lymphocytes Percent Auto 11.1 % (18.3-44.2); Mean Corpuscular HGB Conc 31.3 g/dl (32-36); Mean Corpuscular Hemoglobin 24.5 pg (26-34); Mean Corpuscular Volume 78.3 fl (80-100); Mean Platelet Volume 9.7 fl (7.4-10.4); Monocytes Percent Auto 10.2 % (2.6-8.5); Neutrophils Absolute Auto 7.3 K/mm3 (1.3-6.7); Neutrophils Percent Auto 76.7 % (45.5-73.1); Platelet Count Result 317 k/mm3 (150-375); Red Blood Count 3.51 M/mm3 (4.6-6.20); Red Cell Distribution Width 16.6 % (11.5-14.5); White Blood Count 9.5 K/mm3 (4.5-10.0)
[2023-12-16 04:55] LABS: Alanine Aminotransferase 20 U/L (6-50); Albumin Level 2.9 g/dL (3.5-5.1); Alkaline Phosphatase 60 U/L (38-126); Anion Gap 7 mmol/L (4-12); Aspartate Amino Transferase 45 U/L (17-59); Bilirubin,Total 0.7 mg/dL (0.2-1.3); Blood Urea Nitrogen 67 mg/dL (9-20); Calcium 8.4 mg/dL (8.4-10.2); Carbon Dioxide 33 mmol/L (22-30); Chloride 99 mmol/L (98-107); Estimated CRCL calculation 26 ml/min; Estimated Glomerular Filt Rate 29; Glucose 140 mg/dL (65-110); Magnesium 1.8 mg/dL (1.6-2.3); Sodium 139 mmol/L (137-145)
[2023-12-16 08:10] LABS: Glucose Point of Care 135 mg/dl (65-105)
[2023-12-16 09:09] LABS: Iron 34 ug/dL (49-181)
[2023-12-16 09:18] LABS: Percent Iron Saturation 11 % (20-50)
[2023-12-16] MEDS: ATORVASTATIN 20 MG TABLET PO (09:36)
[2023-12-16] MEDS: TAMSULOSIN HCL 0.4 MG CAPSULE PO (09:36)
[2023-12-16] MEDS: EMPAGLIFLOZIN 10 MG TABLET PO (09:36)
[2023-12-16] MEDS: METOPROLOL SUCCINATE EXT REL 25 MG TABCR PO (09:36)
[2023-12-16] MEDS: ENOXAPARIN 40 MG/0.4 ML SYRINGE SUB-Q (09:36)
[2023-12-16] MEDS: FINASTERIDE 5 MG TABLET PO (09:36)
[2023-12-16] MEDS: ASPIRIN 81 MG ENTERIC TABLET PO (09:36)
[2023-12-16] MEDS: FUROSEMIDE INJ 40 MG/4 ML VIAL IV PUSH ×2 (09:37→17:13)
[2023-12-16] MEDS: oxyCODONE/ACETAMINOPHEN (*CRX) 5-325 MG TABLET 1 TABLET PO ×3 (10:26→23:46)
[2023-12-16 11:18] LABS: IFOB Positive Control Positive; Immunochemical Fecal Occult Bl Positive (N)
[2023-12-16 11:44] LABS: Glucose Point of Care 185 mg/dl (65-105)
--- NOTE | 2023-12-16 13:17 | PM.IMPN ---
Progress Note: A&P Assessment and Plan (1) Systolic dysfunction with heart failure: Code(s): I50.20 - Unspecified systolic (congestive) heart failure Status: Acute (2) CHF (congestive heart failure): Qualifiers: Heart failure chronicity: unspecified Heart failure type: unspecified Qualified Code(s): I50.9 - Heart failure, unspecified Code(s): I50.9 - Heart failure, unspecified Status: Inactive Plan CHF exacerbation Leg and scrotal edema markedly improved CXR showed pulm edema ECHo showed EF 35-40% continue Lasix 40mg IV bid Metoprolol 25mg, jardiance 10mg cardiology on board and titrating cardiac meds Elevated troponin flat troponin ECHO no wall regional motion abnormalities cardiology evaluated and no concern for ACS trend Back pain with progressive Lower extremities weakness Patient noted he has been losing strength in the lower extremities progressively over the past 6 months MRI total spine ordered monitor PT eval recommended SNF Placement Iron deficiency anemia r/o GI bleed Hb 8.6 and Isat 11 Started IV iron 500/1000mg Occult blood stool positive GI consulted monitor HTN titrate home meds with clinical case DM2 SSI with accucheks adjust with clinical course CKD Cr 2.1, which is baseline DVT prophylaxis hold Lovenox, pendign Gi eval PT recommends SNF placement meanwhile Subjective Date/time seen: 12/16/23 13:17 Interval history: Comfortable at bedside and PT recommends SNF placement Review of Systems Review of Systems: Unable to do review of systems as patient is a poor historian Exam Narrative: General: alert and comfortable Eyes: EOMI, PERRLA ENNT External ears normal, Neck is supple, no masses, Respiratory systems: Clear to auscultation Cardiovascular S1, S2, normal rhythm, no murmur, rub, or gallop; no thrill or palpable murmurs on palpation. Gastrointestinal: soft, non-tender, and non-distended abdomen with no masses; BS present Skin: bilateral lower extremities edema with erythema and wounds on the toes, likely from blisters, scrotal edema Musculoskeletal: no abnormality and no tenderness, normal ROM Neurologic: Alert and oriented x3, power 1/5 lower extremities Objective Data Vital Signs Vital Signs: Vital Signs - 24 hr 12/15/23 15:55 12/15/23 16:04 12/15/23 14:00 Temperature 98.0 F Pulse Rate 76 76 73 Respiratory Rate 20 Blood Pressure 134/58 L Pulse Oximetry 97 Oxygen Delivery 12/15/23 16:00 12/15/23 16:00 12/15/23 18:00 Temperature Pulse Rate 72 72 74 Respiratory Rate 18 Blood Pressure Pulse Oximetry 100 Oxygen Delivery Room Air 12/15/23 20:18 12/15/23 20:00 12/15/23 20:00 Temperature 98.1 F Pulse Rate 74 78 Respiratory Rate 20 Blood Pressure 137/68 Pulse Oximetry 97 Oxygen Delivery Room Air 12/15/23 22:00 12/16/23 00:02 12/16/23 00:00 Temperature 98.6 F Pulse Rate 85 66 Respiratory Rate 18 Blood Pressure 140/71 Pulse Oximetry 97 Oxygen Delivery Room Air 12/16/23 00:00 12/16/23 02:00 12/16/23 04:00 Temperature Pulse Rate 67 75 Respiratory Rate Blood Pressure Pulse Oximetry Oxygen Delivery Room Air 12/16/23 04:32 12/16/23 04:00 12/16/23 06:00 Temperature 98.4 F Pulse Rate 72 72 85 Respiratory Rate 20 Blood Pressure 138/76 Pulse Oximetry 100 Oxygen Delivery 12/16/23 07:33 12/16/23 07:37 12/16/23 08:28 Temperature 98.5 F Pulse Rate 80 Respiratory Rate 20 Blood Pressure 165/68 H 143/49 H Pulse Oximetry 96 Oxygen Delivery Room Air 12/16/23 08:00 12/16/23 10:00 12/16/23 11:36 Temperature 98.1 F Pulse Rate 84 75 70 Respiratory Rate 20 Blood Pressure 133/69 Pulse Oximetry 96 Oxygen Delivery 12/16/23 12:00 Temperature Pulse Rate 73 Respiratory Rate Blood Pressure Pulse Oximetry Oxygen Delivery Intake/Outpu
--- NOTE | 2023-12-16 13:18 | PM.PNCARD ---
Progress Note: A&P Assessment and Plan (1) Systolic dysfunction with heart failure: Code(s): I50.20 - Unspecified systolic (congestive) heart failure Status: Acute Plan Acute on chronic systolic heart failure ejection fraction 35% Hypertension controlled Plan Continue with Lasix 40 mg IV b.i.d. today and shifted to oral diuretic tomorrow Jardiance 10 mg daily Continue metoprolol XL Add Entresto 24-26 p.o. b.i.d. Subjective Date/time seen: 12/16/23 13:18 Interval history: no acute events SOB is improving Review of Systems Review of Systems: All systems reviewed & are unremarkable except as noted in HPI and below Exam Narrative: General: alert and comfortable Eyes: EOMI, PERRLA ENNT External ears normal, Neck is supple, no masses, Respiratory systems: Clear to auscultation Cardiovascular S1, S2, normal rhythm, no murmur, rub, or gallop; no thrill or palpable murmurs on palpation. Gastrointestinal: soft, non-tender, and non-distended abdomen with no masses; BS present Skin: bilateral lower extremities edema with erythema and wounds on the toes, likely from blisters, scrotal edema Musculoskeletal: no abnormality and no tenderness, normal ROM Neurologic: Alert and oriented x3, power 1/5 lower extremities Objective Data Vital Signs Vital Signs: Vital Signs - 24 hr 12/15/23 15:55 12/15/23 16:04 12/15/23 14:00 Temperature 36.7 C Pulse Rate 76 76 73 Respiratory Rate 20 Blood Pressure 134/58 L Pulse Oximetry 97 Oxygen Delivery 12/15/23 16:00 12/15/23 16:00 12/15/23 18:00 Temperature Pulse Rate 72 72 74 Respiratory Rate 18 Blood Pressure Pulse Oximetry 100 Oxygen Delivery Room Air 12/15/23 20:18 12/15/23 20:00 12/15/23 20:00 Temperature 36.7 C Pulse Rate 74 78 Respiratory Rate 20 Blood Pressure 137/68 Pulse Oximetry 97 Oxygen Delivery Room Air 12/15/23 22:00 12/16/23 00:02 12/16/23 00:00 Temperature 37.0 C Pulse Rate 85 66 Respiratory Rate 18 Blood Pressure 140/71 Pulse Oximetry 97 Oxygen Delivery Room Air 12/16/23 00:00 12/16/23 02:00 12/16/23 04:00 Temperature Pulse Rate 67 75 Respiratory Rate Blood Pressure Pulse Oximetry Oxygen Delivery Room Air 12/16/23 04:32 12/16/23 04:00 12/16/23 06:00 Temperature 36.9 C Pulse Rate 72 72 85 Respiratory Rate 20 Blood Pressure 138/76 Pulse Oximetry 100 Oxygen Delivery 12/16/23 07:33 12/16/23 07:37 12/16/23 08:28 Temperature 36.9 C Pulse Rate 80 Respiratory Rate 20 Blood Pressure 165/68 H 143/49 H Pulse Oximetry 96 Oxygen Delivery Room Air 12/16/23 08:00 12/16/23 10:00 12/16/23 11:36 Temperature 36.7 C Pulse Rate 84 75 70 Respiratory Rate 20 Blood Pressure 133/69 Pulse Oximetry 96 Oxygen Delivery 12/16/23 12:00 Temperature Pulse Rate 73 Respiratory Rate Blood Pressure Pulse Oximetry Oxygen Delivery Intake/Output Intake/Output: Intake & Output 12/13/23 12/14/23 12/15/23 12/16/23 23:59 23:59 23:59 23:59 Intake Total 835 1080 Output Total 0129 [id number] Meds/Results Medications: Active Medications Generic Name Dose Route Start Last Admin Trade Name Freq PRN Reason Stop Dose Admin Acetaminophen 650 mg 12/15/23 02:20 12/15/23 21:27 Acetaminophen 325 Mg Tablet PO 650 mg Q4H PRN Administration Mild Pain (1-3) or Fever Al Hydrox/Mg Hydrox/Simethicone 30 ml 12/15/23 02:20 Mag Hydrox/Al Hydrox/Simeth 30 Ml Udc PO QID PRN Dyspepsia Albuterol 2 puff 12/15/23 02:19 Albuterol Sulfate (*Sp) Aerosol 1 Puff INHALATION Q4H PRN Shortness Of Breath Or Wheezing Aspirin 81 mg 12/15/23 09:00 12/16/23 09:36 Aspirin 81 Mg Enteric Tablet PO 81 mg QAM DUONG Administration Atorvastatin Calcium 20 mg 12/15/23 09:00 12/16/23 09:36 Atorvastatin 20 Mg Tablet PO 20 mg DAILY DUONG Adminis
[2023-12-16] MEDS: IRON SUCROSE COMPLEX 400 MG, IRON SUCROSE COMPLEX 100 MG in SODIUM CHLORIDE 0.9% IV 250 ML 78.57 MG IVPB (14:43)
--- NOTE | 2023-12-16 15:31 | WPDGICN ---
Assessment and Plan Assessment and plan (1) Iron deficiency anemia: Code(s): D50.9 - Iron deficiency anemia, unspecified Status: Acute Assessment and Plan: anemia partially from chronic disease (CKD, anasarca with chf, etc) given advanced age with chf exacerbation and no overt gib decision is to continue monitoring and conservative approach of course if any changes or obvious gib then we can entertain idea of colonoscopy but will hold off will follow as needed (2) Occult blood in stools: Code(s): R19.5 - Other fecal abnormalities Status: Acute Assessment and Plan: no overt gib no need of urgent colonoscopy (3) Systolic dysfunction with heart failure: Code(s): I50.20 - Unspecified systolic (congestive) heart failure Status: Acute Assessment and Plan: by cardiology (4) Chronic kidney disease (CKD) stage G3b/A1, moderately decreased glomerular filtration rate (GFR) between 30-44 mL/min/1.73 square meter and albuminuria creatinine ratio less than 30 mg/g: Code(s): N18.32 - Chronic kidney disease, stage 3b Status: Acute (5) Anasarca: Code(s): R60.1 - Generalized edema Status: Inactive Assessment and Plan: better with diuretics (6) Foot pain, bilateral: Code(s): M79.671 - Pain in right foot; M79.672 - Pain in left foot Status: Inactive (7) Scrotal edema: Code(s): N50.89 - Other specified disorders of the male genital organs Status: Inactive GI Consult Note Consult date/time: 12/16/23 15:31 Reason for consult: madhavi, occult blood in stools HPI: Sachin Shaw is a 83 year old male with history of DM, HTN admitted with dyspnea and discomfort. 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 He is already more comfortable and feeling better, he is hard of hearing. Part of history also obtained from son in law at bedside. He also found to have iron deficiency anemia, occult blood in stools positive but denies overt gib, he is having normal brown BM. No abdominal pain. He used to get regular screening colonoscopies with last one about 10 years ago. Also CKD stage 3 at least. Review of Systems Constitutional: Constitutional: Reports fatigue Eyes: Eyes: Denies blurry vision ENT: Comments: hard of hearing Cardiovascular: Cardiovascular: Reports pedal edema Respiratory: Respiratory: Reports dyspnea on exertion Gastrointestinal: Gastrointestinal: Denies abdominal pain Genitourinary: Genitourinary: Denies flank pain Musculoskeletal: Musculoskeletal: Denies neck pain Integumentary/Breasts: Skin/Breast: Denies rash Neurologic: Denies Abnormal speech present Psychiatric: Psychiatric: Denies behavioral changes [facility] Past Medical History Medical History (Updated 12/16/23 @ 15:35 by Shady Strange MD) Chronic back pain Chronic kidney disease (CKD) stage G3b/A1, moderately decreased glomerular filtration rate (GFR) between 30-44 mL/min/1.73 square meter and albuminuria creatinine ratio less than 30 mg/g Constipation due to opioid therapy Decreased appetite Edema of left lower extremity Fall at home Hip pain Hypertension Iron deficiency anemia Leukocytosis, unspecified Occult blood in stools Right knee pain Type 2 diabetes mellitus Surgical History Surgical History H/O arthroscopy of right knee History of back surgery Social History Social History Smoking status: Never smoker Alcohol intake: never Substance use: never Substance use type: does not use Last use: for chronic pain Do You Feel Safe in your Home?: Yes Lack of Transportation: No Lack of Food: Never True Current Housing: I Have Housing Concerned About Future Housing: No Difficulty Paying Gas/Electric Bills: No Difficulty Paying fo
[2023-12-16 16:56] LABS: Glucose Point of Care 207 mg/dl (65-105)
[2023-12-16] MEDS: INSULIN ASPART (*BKC) 100 UNITS/ML SUB-Q (17:09)
[2023-12-16 20:24] LABS: Glucose Point of Care 190 mg/dl (65-105)
[2023-12-16] MEDS: PANTOPRAZOLE SODIUM IV 40 MG VIAL IV PUSH (20:54)
[2023-12-17] VITALS (17 sets, daily range): BP systolic 129–168; BP diastolic 70–84; PULSE 65–91; RESP 16–20; TEMP 36.3–37.1; O2SAT 92–98
[2023-12-17 08:10] LABS: Glucose Point of Care 139 mg/dl (65-105)
[2023-12-17] MEDS: TAMSULOSIN HCL 0.4 MG CAPSULE PO (08:17)
[2023-12-17] MEDS: ASPIRIN 81 MG ENTERIC TABLET PO (08:17)
[2023-12-17] MEDS: ATORVASTATIN 20 MG TABLET PO (08:18)
[2023-12-17] MEDS: PANTOPRAZOLE SODIUM IV 40 MG VIAL IV PUSH ×2 (08:18→20:16)
[2023-12-17] MEDS: METOPROLOL SUCCINATE EXT REL 25 MG TABCR PO (08:18)
[2023-12-17] MEDS: EMPAGLIFLOZIN 10 MG TABLET PO (08:18)
[2023-12-17] MEDS: oxyCODONE/ACETAMINOPHEN (*CRX) 5-325 MG TABLET 1 TABLET PO ×2 (08:18→23:31)
[2023-12-17] MEDS: FINASTERIDE 5 MG TABLET PO (08:18)
[2023-12-17] MEDS: FUROSEMIDE INJ 40 MG/4 ML VIAL IV PUSH (08:18)
[2023-12-17 09:41] LABS: Basophils Absolute Auto 0.1 K/mm3 (0.0-0.1); Basophils Percent Auto 0.7 % (0.2-1.2); Eosinophils Absolute Auto 0.1 K/mm3 (0-0.3); Hematocrit 28.9 % (42.0-52.0); Hemoglobin 9.1 g/dL (14.0-18.0); Immature Granulocyte Absolute 0.15 K/mm3 (0.00-0.031); Immature Granulocyte Percent A 1.7 % (0-0.5); Lymphocytes Absolute Auto 0.85 K/mm3 (0.9-3.2); Lymphocytes Percent Auto 9.9 % (18.3-44.2); Mean Corpuscular HGB Conc 31.5 g/dl (32-36); Mean Corpuscular Hemoglobin 25.1 pg (26-34); Mean Corpuscular Volume 79.8 fl (80-100); Mean Platelet Volume 10.2 fl (7.4-10.4); Monocytes Absolute Auto 0.9 K/mm3 (0.1-0.6); Monocytes Percent Auto 9.9 % (2.6-8.5); Neutrophils Absolute Auto 6.6 K/mm3 (1.3-6.7); Neutrophils Percent Auto 76.8 % (45.5-73.1); Platelet Count Result 287 k/mm3 (150-375); Red Blood Count 3.62 M/mm3 (4.6-6.20); Red Cell Distribution Width 16.8 % (11.5-14.5); White Blood Count 8.6 K/mm3 (4.5-10.0)
[2023-12-17 09:51] LABS: Alanine Aminotransferase 19 U/L (6-50); Albumin Level 2.9 g/dL (3.5-5.1); Alkaline Phosphatase 56 U/L (38-126); Anion Gap 4 mmol/L (4-12); Aspartate Amino Transferase 35 U/L (17-59); Bilirubin,Total 0.6 mg/dL (0.2-1.3); Blood Urea Nitrogen 60 mg/dL (9-20); Calcium 8.1 mg/dL (8.4-10.2); Carbon Dioxide 34 mmol/L (22-30); Chloride 100 mmol/L (98-107); Estimated CRCL calculation 25 ml/min; Estimated Glomerular Filt Rate 32; Glucose 180 mg/dL (65-110); Potassium 3.3 mmol/L (3.4-5.0); Sodium 138 mmol/L (137-145)
[2023-12-17] MEDS: IRON SUCROSE COMPLEX 400 MG, IRON SUCROSE COMPLEX 100 MG in SODIUM CHLORIDE 0.9% IV 250 ML 78.57 MG IVPB (10:14)
[2023-12-17] MEDS: levoFLOXacin 500 MG TABLET PO (10:14)
--- NOTE | 2023-12-17 11:09 | PM.PNCARD ---
Progress Note: A&P Assessment and Plan (1) Systolic dysfunction with heart failure: Code(s): I50.20 - Unspecified systolic (congestive) heart failure Status: Acute Plan Acute on chronic systolic heart failure ejection fraction 35% improving Hypertension controlled iron deficiency Plan chnage IV lasix to po lasix 40 mg po BID Jardiance 10 mg daily Continue metoprolol XL Cont Entresto 24-26 p.o. b.i.d. F/u Kidney function and electrolytes Subjective Date/time seen: 12/17/23 11:09 Interval history: no acute events Review of Systems Review of Systems: All systems reviewed & are unremarkable except as noted in HPI and below Exam Narrative: General: alert and comfortable Eyes: EOMI, PERRLA ENNT External ears normal, Neck is supple, no masses, Respiratory systems: Clear to auscultation Cardiovascular S1, S2, normal rhythm, no murmur, rub, or gallop; no thrill or palpable murmurs on palpation. Gastrointestinal: soft, non-tender, and non-distended abdomen with no masses; BS present Skin: bilateral lower extremities edema with erythema and wounds on the toes, likely from blisters, scrotal edema Musculoskeletal: no abnormality and no tenderness, normal ROM Neurologic: Alert and oriented x3, power 1/5 lower extremities Objective Data Vital Signs Vital Signs: Vital Signs - 24 hr 12/16/23 11:36 12/16/23 12:00 12/16/23 14:00 Temperature 36.7 C Pulse Rate 70 73 76 Respiratory Rate 20 Blood Pressure 133/69 Pulse Oximetry 96 Oxygen Delivery 12/16/23 15:28 12/16/23 16:00 12/16/23 18:00 Temperature 36.8 C Pulse Rate 81 78 79 Respiratory Rate 16 Blood Pressure 158/85 H Pulse Oximetry 94 Oxygen Delivery 12/16/23 20:33 12/16/23 20:00 12/16/23 20:00 Temperature 36.8 C Pulse Rate 77 74 Respiratory Rate 18 Blood Pressure 144/85 H Pulse Oximetry 94 Oxygen Delivery Room Air 12/16/23 22:00 12/16/23 23:58 12/17/23 00:00 Temperature 36.6 C Pulse Rate 70 74 Respiratory Rate 18 Blood Pressure 148/70 H Pulse Oximetry 92 Oxygen Delivery Room Air 12/17/23 00:00 12/17/23 02:00 12/17/23 04:00 Temperature Pulse Rate 84 66 Respiratory Rate Blood Pressure Pulse Oximetry Oxygen Delivery Room Air 12/17/23 04:00 12/17/23 05:18 12/17/23 05:58 Temperature 36.3 C L Pulse Rate 91 73 77 Respiratory Rate 20 Blood Pressure 168/77 H Pulse Oximetry 92 Oxygen Delivery 12/17/23 08:13 Temperature 37.1 C Pulse Rate 71 Respiratory Rate 16 Blood Pressure 139/76 Pulse Oximetry 92 Oxygen Delivery Intake/Output Intake/Output: Intake & Output 12/14/23 12/15/23 12/16/23 12/17/23 23:59 23:59 23:59 23:59 Intake Total 831 1870 077 Output Total 0829 5130 8531 Balance -8365 -4447 -0118 Meds/Results Medications: Active Medications Generic Name Dose Route Start Last Admin Trade Name Freq PRN Reason Stop Dose Admin Acetaminophen 650 mg 12/15/23 02:20 12/15/23 21:27 Acetaminophen 325 Mg Tablet PO 650 mg Q4H PRN Administration Mild Pain (1-3) or Fever Al Hydrox/Mg Hydrox/Simethicone 30 ml 12/15/23 02:20 Mag Hydrox/Al Hydrox/Simeth 30 Ml Udc PO QID PRN Dyspepsia Albuterol 2 puff 12/15/23 02:19 Albuterol Sulfate (*Sp) Aerosol 1 Puff INHALATION Q4H PRN Shortness Of Breath Or Wheezing Aspirin 81 mg 12/15/23 09:00 12/17/23 08:17 Aspirin 81 Mg Enteric Tablet PO 81 mg QAM DUONG Administration Atorvastatin Calcium 20 mg 12/15/23 09:00 12/17/23 08:18 Atorvastatin 20 Mg Tablet PO 20 mg DAILY DUONG Administration Dextrose 12.5 gm 12/15/23 04:54 Dextrose 50% 25 Gm/50 Ml Syringe IV PUSH PRN PRN Hypoglycemia Protocol Empagliflozin 10 mg 12/15/23 13:05 12/17/23 08:18 Empagliflozin 10 Mg Tablet PO 10 mg DAILY DUONG Administration Finasteride 5 mg 12/15/23 09:00 12/17/23 08:18 Finasteride 5 Mg Tabl
[2023-12-17 11:51] LABS: Glucose Point of Care 178 mg/dl (65-105)
--- NOTE | 2023-12-17 14:57 | PM.IMPN ---
Progress Note: A&P Assessment and Plan (1) Systolic dysfunction with heart failure: Code(s): I50.20 - Unspecified systolic (congestive) heart failure Status: Acute (2) CHF (congestive heart failure): Qualifiers: Heart failure chronicity: unspecified Heart failure type: unspecified Qualified Code(s): I50.9 - Heart failure, unspecified Code(s): I50.9 - Heart failure, unspecified Status: Inactive Plan CHF exacerbation Leg and scrotal edema markedly improved CXR showed pulm edema ECHO showed EF 35-40% Change lasix IV to PO 40mg po bid per cardiology Metoprolol 25mg, Jardiance 10mg cardiology on board and titrating cardiac meds Elevated troponin flat troponin ECHO no wall regional motion abnormalities cardiology evaluated and no concern for ACS trend Back pain with progressive Lower extremities weakness Patient noted he has been losing strength in the lower extremities progressively over the past 6 months MRI total spine ordered monitor PT eval recommended SNF Placement Iron deficiency anemia r/o GI bleed Hb 9.1 and Isat 11 s/pIV iron 1000/1000mg Occult blood stool positive GI evaluated and noted that since patient does not overt Gi bleed, no intervention needed for now monitor HTN titrate home meds with clinical case DM2 SSI with accucheks adjust with clinical course CKD Cr 2.1, which is baseline DVT prophylaxis hold Lovenox, pending Gi eval PT recommends SNF placement awaiting placement Subjective Date/time seen: 12/17/23 14:57 Interval history: Comfortable at bedside No overnight events Review of Systems Review of Systems: Unable to do review of systems as patient is a poor historian Exam Narrative: General: alert and comfortable Eyes: EOMI, PERRLA ENNT External ears normal, Neck is supple, no masses, Respiratory systems: Clear to auscultation Cardiovascular S1, S2, normal rhythm, no murmur, rub, or gallop; no thrill or palpable murmurs on palpation. Gastrointestinal: soft, non-tender, and non-distended abdomen with no masses; BS present Skin: bilateral lower extremities edema with erythema and wounds on the toes, likely from blisters, scrotal edema Musculoskeletal: no abnormality and no tenderness, normal ROM Neurologic: Alert and oriented x3, power 1/5 lower extremities Objective Data Vital Signs Vital Signs: Vital Signs - 24 hr 12/16/23 15:28 12/16/23 16:00 12/16/23 18:00 Temperature 98.2 F Pulse Rate 81 78 79 Respiratory Rate 16 Blood Pressure 158/85 H Pulse Oximetry 94 Oxygen Delivery 12/16/23 20:33 12/16/23 20:00 12/16/23 20:00 Temperature 98.3 F Pulse Rate 77 74 Respiratory Rate 18 Blood Pressure 144/85 H Pulse Oximetry 94 Oxygen Delivery Room Air 12/16/23 22:00 12/16/23 23:58 12/17/23 00:00 Temperature 97.9 F Pulse Rate 70 74 Respiratory Rate 18 Blood Pressure 148/70 H Pulse Oximetry 92 Oxygen Delivery Room Air 12/17/23 00:00 12/17/23 02:00 12/17/23 04:00 Temperature Pulse Rate 84 66 Respiratory Rate Blood Pressure Pulse Oximetry Oxygen Delivery Room Air 12/17/23 04:00 12/17/23 05:18 12/17/23 05:58 Temperature 97.4 F L Pulse Rate 91 73 77 Respiratory Rate 20 Blood Pressure 168/77 H Pulse Oximetry 92 Oxygen Delivery 12/17/23 08:13 12/17/23 08:00 12/17/23 10:00 Temperature 98.7 F Pulse Rate 71 74 71 Respiratory Rate 16 Blood Pressure 139/76 Pulse Oximetry 92 Oxygen Delivery 12/17/23 11:54 12/17/23 12:00 12/17/23 14:00 Temperature 98.4 F Pulse Rate 73 72 76 Respiratory Rate 18 Blood Pressure 129/75 Pulse Oximetry 94 Oxygen Delivery Intake/Output Intake/Output: Intake & Output 12/14/23 12/15/23 12/16/23 12/17/23 23:59 23:59 23:59 23:59 Intake Total 835 1870 960 Output Total 5118 5974 3557 [facility] -[phone] -[phone] -2590 Meds/Results
[2023-12-17 16:16] LABS: Glucose Point of Care 189 mg/dl (65-105)
[2023-12-17] MEDS: FUROSEMIDE 40 MG TABLET PO (18:10)
[2023-12-17 20:28] LABS: Glucose Point of Care 205 mg/dl (65-105)
[2023-12-18] VITALS (16 sets, daily range): BP systolic 130–158; BP diastolic 53–99; PULSE 64–84; RESP 16–20; TEMP 36–37; O2SAT 90–99
[2023-12-18 05:21] LABS: Basophils Absolute Auto 0.1 K/mm3 (0.0-0.1); Basophils Percent Auto 0.7 % (0.2-1.2); Eosinophils Absolute Auto 0.2 K/mm3 (0-0.3); Eosinophils Percent Auto 1.8 % (0-4.4); Hematocrit 31.1 % (42.0-52.0); Hemoglobin 9.4 g/dL (14.0-18.0); Immature Granulocyte Absolute 0.27 K/mm3 (0.00-0.031); Immature Granulocyte Percent A 2.7 % (0-0.5); Lymphocytes Percent Auto 10.8 % (18.3-44.2); Mean Corpuscular HGB Conc 30.2 g/dl (32-36); Mean Corpuscular Hemoglobin 24.3 pg (26-34); Mean Corpuscular Volume 80.4 fl (80-100); Mean Platelet Volume 10.2 fl (7.4-10.4); Monocytes Absolute Auto 0.9 K/mm3 (0.1-0.6); Monocytes Percent Auto 9.2 % (2.6-8.5); Neutrophils Absolute Auto 7.6 K/mm3 (1.3-6.7); Neutrophils Percent Auto 74.8 % (45.5-73.1); Nucleated Red Blood Cells Perc 0.2 % (0.0-0.2); Platelet Count Result 295 k/mm3 (150-375); Red Blood Count 3.87 M/mm3 (4.6-6.20); White Blood Count 10.1 K/mm3 (4.5-10.0)
[2023-12-18 05:36] LABS: Lactic Acid Reflex 1.5 mmol/L (0.7-2.0)
[2023-12-18 05:37] LABS: Alanine Aminotransferase 19 U/L (6-50); Albumin Level 3.2 g/dL (3.5-5.1); Alkaline Phosphatase 61 U/L (38-126); Anion Gap 7 mmol/L (4-12); Aspartate Amino Transferase 32 U/L (17-59); Bilirubin,Total 0.7 mg/dL (0.2-1.3); Blood Urea Nitrogen 55 mg/dL (9-20); Calcium 8.4 mg/dL (8.4-10.2); Carbon Dioxide 33 mmol/L (22-30); Chloride 99 mmol/L (98-107); Estimated CRCL calculation 28 ml/min; Estimated Glomerular Filt Rate 36; Glucose 139 mg/dL (65-110); Magnesium 1.9 mg/dL (1.6-2.3); Potassium 3.4 mmol/L (3.4-5.0); Sodium 139 mmol/L (137-145)
[2023-12-18] MEDS: ASPIRIN 81 MG ENTERIC TABLET PO (08:11)
[2023-12-18] MEDS: PANTOPRAZOLE SODIUM IV 40 MG VIAL IV PUSH ×2 (08:11→20:25)
[2023-12-18] MEDS: oxyCODONE/ACETAMINOPHEN (*CRX) 5-325 MG TABLET 1 TABLET PO ×2 (08:11→20:26)
[2023-12-18] MEDS: FUROSEMIDE 40 MG TABLET PO ×2 (08:12→16:59)
[2023-12-18] MEDS: EMPAGLIFLOZIN 10 MG TABLET PO (08:12)
[2023-12-18] MEDS: levoFLOXacin 500 MG TABLET PO (08:12)
[2023-12-18] MEDS: ATORVASTATIN 20 MG TABLET PO (08:12)
[2023-12-18] MEDS: METOPROLOL SUCCINATE EXT REL 25 MG TABCR PO (08:12)
[2023-12-18] MEDS: TAMSULOSIN HCL 0.4 MG CAPSULE PO (08:12)
[2023-12-18] MEDS: FINASTERIDE 5 MG TABLET PO (08:12)
[2023-12-18 08:34] LABS: Glucose Point of Care 139 mg/dl (65-105)
--- NOTE | 2023-12-18 10:03 | PCNFU ---
Nutrition Follow-Up Complete: Increased protein energy needs related to multiple pressure injuries as evidenced by wound report Goal:Adequate PO intake at least 75% meals and supplements to support wound healing Pt meeting intake goal for meals, no orders for supplements. Pt current nutrition is 2gm NA. Nutrition recommendation: Add Glucerna shakes BID, EUGENIO BID Last recorded weight is 92 kg. Bowel Motility: +BM 12/14 Labs Reviewed: Hgb:9.4, HCT:31.1, BUN:55, Cr:1.8, Glu:139 Meds Noted: jardiance, lasix, novolog, zofran, protonix Skin: Stage III Left thigh, Stage IV right thigh Additional Notes: Pt continues on a 2gm NA diet ,intake improved to 75% at this time. No supplements in place, recommend Glucerna shakes and EUGENIO BID for wounds Monitoring intakes, weights, labs, wound healing, supplement tolerance, plan of care Follow up in 7 days
[2023-12-18] MEDS: polyethylene glycoL 3350 17 GM POWD.PACK PO (10:35)
[2023-12-18 11:35] LABS: Glucose Point of Care 159 mg/dl (65-105)
--- NOTE | 2023-12-18 14:37 | PM.IMPN ---
Progress Note: A&P Assessment and Plan (1) Systolic dysfunction with heart failure: Code(s): I50.20 - Unspecified systolic (congestive) heart failure Status: Acute (2) CHF (congestive heart failure): Qualifiers: Heart failure chronicity: unspecified Heart failure type: unspecified Qualified Code(s): I50.9 - Heart failure, unspecified Code(s): I50.9 - Heart failure, unspecified Status: Inactive Plan CHF exacerbation, improving Leg and scrotal edema markedly improved CXR showed pulm edema ECHO showed EF 35-40% Continue lasix PO 40mg po bid per cardiology Metoprolol 25mg, Jardiance 10mg cardiology on board and titrating cardiac meds Elevated troponin flat troponin ECHO no wall regional motion abnormalities cardiology evaluated and no concern for ACS trend Lumbar levoscoliosis with severe spondylosis Disc herniation at T11 adn T12 with 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 Back pain with progressive Lower extremities weakness Patient noted he has been losing strength in the lower extremities progressively over the past 6 months MRI total spine reviewed Noted he has been evaluated by neurosurgery at [facility] in the past However neurology has been consulted to seek their opinion on further neurosurgery need monitor PT eval recommended SNF Placement Iron deficiency anemia r/o GI bleed Hb 9.4 and Isat 11 s/pIV iron 1000/1000mg Occult blood stool positive GI evaluated and noted that since patient does not overt Gi bleed, no intervention needed for now monitor HTN titrate home meds with clinical case DM2 SSI with accucheks adjust with clinical course CKD Cr 1.8, which is baseline DVT prophylaxis hold Lovenox due to positive occult blood PT recommends SNF placement awaiting placement Subjective Date/time seen: 12/18/23 14:37 Interval history: Comfortable at bedside No overnight events Awaiting SNF placement Review of Systems Review of Systems: Unable to do review of systems as patient is a poor historian Exam Narrative: General: alert and comfortable Eyes: EOMI, PERRLA ENNT External ears normal, Neck is supple, no masses, Respiratory systems: Clear to auscultation Cardiovascular S1, S2, normal rhythm, no murmur, rub, or gallop; no thrill or palpable murmurs on palpation. Gastrointestinal: soft, non-tender, and non-distended abdomen with no masses; BS present Skin: bilateral lower extremities edema with erythema and wounds on the toes, likely from blisters, scrotal edema Musculoskeletal: no abnormality and no tenderness, normal ROM Neurologic: Alert and oriented x3, power 1/5 lower extremities Objective Data Vital Signs Vital Signs: Vital Signs - 24 hr 12/17/23 16:00 12/17/23 16:00 12/17/23 18:00 Temperature 98.7 F Pulse Rate 71 66 70 Respiratory Rate 16 Blood Pressure 135/78 Pulse Oximetry 95 Oxygen Delivery 12/17/23 19:46 12/17/23 20:00 12/17/23 22:00 Temperature 97.8 F Pulse Rate 71 76 73 Respiratory Rate 16 Blood Pressure 145/84 H Pulse Oximetry 95 Oxygen Delivery 12/17/23 23:45 12/18/23 00:00 12/18/23 02:00 Temperature 98.2 F Pulse Rate 65 68 66 Respiratory Rate 16 Blood Pressure 141/77 H Pulse Oximetry 98 Oxygen Delivery 12/18/23 03:12 12/18/23 04:00 12/18/23 04:00 Temperature 98.3 F Pulse Rate 76 78 Respiratory Rate 16 Blood Pressure 132/53 L Pulse Oximetry 95 Oxygen Delivery Room Air 12/18/23 05:21 12/18/23 07:26 12/18/23 08:14 Temperature 98 F Pulse Rate 78 81 Respi
[2023-12-18 18:23] LABS: Glucose Point of Care 168 mg/dl (65-105)
[2023-12-18 20:18] LABS: Glucose Point of Care 218 mg/dl (65-105)
[2023-12-18] MEDS: INSULIN ASPART (*BKC) 100 UNITS/ML SUB-Q (21:20)
--- NOTE | 2023-12-18 22:59 | PC.NURSE ---
Pt. was transferred to [facility] at approximately 2145. Report was made to RN & pt. was placed in room without incident.
[2023-12-19] VITALS (10 sets, daily range): BP systolic 124–159; BP diastolic 72–79; PULSE 65–84; RESP 19–20; TEMP 36.3–36.5; O2SAT 93–96
[2023-12-19] MEDS: oxyCODONE/ACETAMINOPHEN (*CRX) 5-325 MG TABLET 1 TABLET PO ×3 (04:50→17:27)
[2023-12-19 08:11] LABS: Glucose Point of Care 136 mg/dl (65-105)
--- NOTE | 2023-12-19 08:30 | PM.PNCARD ---
Progress Note: A&P Assessment and Plan (1) Systolic dysfunction with heart failure: Code(s): I50.20 - Unspecified systolic (congestive) heart failure Status: Acute Plan 1. Acute on chronic systolic heart failure ejection fraction NYHA II-III, Stage C EF 35 Etiology unclear - Continue Toprol-XL - Not on KIANNA/ARB/ARNI/AA because of impaired renal function - Will start on hydralazine 10 mg TID, Isordil 10 mg TID - On SGLT2,monitor renal function/blood sugar closely - Discussed ischemic evaluation with him and his daughter. They currently decline any kind of invasive evaluation 2. Hypertension BP slightly above target #1 as above 3. CKD 3 Baseline probably around 1.6-1.7 Approaching baseline Will need to see a nephrolgist as an outpatient Subjective Date/time seen: 12/19/23 08:30 Interval history: Comfortable at bedside No overnight events Feels alittle weak in his lower extremities today Awaiting SNF placement - 1.11 L in last 24 hours Creatinine improved to 1.8 Review of Systems Review of Systems: All systems reviewed & are unremarkable except as noted in HPI and below Exam Narrative: General: alert and comfortable Eyes: EOMI, PERRLA ENNT External ears normal, Neck is supple, no masses, Respiratory systems: Clear to auscultation Cardiovascular S1, S2, normal rhythm, no murmur, rub, or gallop; no thrill or palpable murmurs on palpation. Gastrointestinal: soft, non-tender, and non-distended abdomen with no masses; BS present Skin: bilateral lower extremities edema with erythema and wounds on the toes, likely from blisters, scrotal edema Musculoskeletal: no abnormality and no tenderness, normal ROM Neurologic: Alert and oriented x3, power 1/5 lower extremities Const: General: comfortable, no acute distress, alert and awake Orientation/consciousness: patient oriented x3 HENMT: Head: normal to inspection Eyes: General: appearance normal, both eyes and all related structures Pupils: Equal, round and reactive pupils present Neck: Neck: normal visual inspection, supple and no JVD Carotids: normal carotid upstroke Resp: Effort & Inspection: normal respiratory effort Auscultation: crackles (mild bibasilar crackles) Cardio: Rate: regular rate Rhythm: regular rhythm Heart sounds: S1 normal heart sound present, S2 normal heart sound present and no murmurs GI: Auscultation: normal bowel sounds Skin: General skin exam: normal color Neuro: General: patient oriented x3 Cranial nerves: Yes Equal, round and reactive pupils present Extrem: General: edema and pedal edema Other: Erythema Psych: Appearance: grossly normal Mental Status: mental status grossly normal Objective Data Vital Signs Vital Signs: Vital Signs - 24 hr 12/18/23 09:50 12/18/23 12:00 12/18/23 14:00 Temperature Pulse Rate 77 74 67 Respiratory Rate Blood Pressure Pulse Oximetry Oxygen Delivery 12/18/23 15:36 12/18/23 16:00 12/18/23 17:56 Temperature 36.5 C Pulse Rate 75 78 82 Respiratory Rate 18 Blood Pressure 140/75 Pulse Oximetry 96 Oxygen Delivery 12/18/23 19:43 12/18/23 20:00 12/18/23 20:00 Temperature 37.0 C Pulse Rate 76 74 Respiratory Rate 20 Blood Pressure 130/61 Pulse Oximetry 93 Oxygen Delivery Room Air 12/18/23 22:24 12/19/23 00:00 12/19/23 04:00 Temperature 36.0 C L Pulse Rate 64 77 84 Respiratory Rate 20 Blood Pressure 139/68 Pulse Oximetry 90 Oxygen Delivery 12/19/23 04:18 Temperature 36.5 C Pulse Rate 73 Respiratory Rate 20 Blood Pressure 159/79 H Pulse Oximetry 96 Oxygen Delivery Intake/Output Intake/Output: Intake & Output 12/16/23 12/17/23 12/18/23 12/19/23 23:59 23:59 23:59 23:59 Intake Total 1870 2850 1000 240 Output Total 8475 4350 4300 800 [facility] -2905 -1500 -[phone] -560 Meds/Results Medications: Active Medications Generic Name Dose Route Start Last Admin Tra
[2023-12-19] MEDS: ASPIRIN 81 MG ENTERIC TABLET PO (08:46)
[2023-12-19] MEDS: FINASTERIDE 5 MG TABLET PO (08:46)
[2023-12-19] MEDS: levoFLOXacin 500 MG TABLET PO (08:46)
[2023-12-19] MEDS: METOPROLOL SUCCINATE EXT REL 25 MG TABCR PO (08:46)
[2023-12-19] MEDS: FUROSEMIDE 40 MG TABLET PO ×2 (08:46→17:21)
[2023-12-19] MEDS: ATORVASTATIN 20 MG TABLET PO (08:46)
[2023-12-19] MEDS: TAMSULOSIN HCL 0.4 MG CAPSULE PO (08:47)
[2023-12-19] MEDS: PANTOPRAZOLE SODIUM IV 40 MG VIAL IV PUSH ×2 (08:47→20:32)
[2023-12-19] MEDS: EMPAGLIFLOZIN 10 MG TABLET PO (08:47)
[2023-12-19 12:22] LABS: Glucose Point of Care 162 mg/dl (65-105)
[2023-12-19] MEDS: hydrALAZINE 10 MG TABLET PO ×2 (12:33→17:22)
[2023-12-19] MEDS: ISOSORBIDE DINITRATE 10 MG TABLET PO ×2 (12:33→17:39)
--- NOTE | 2023-12-19 15:29 | PM.IMPN ---
Progress Note: A&P Assessment and Plan (1) Systolic dysfunction with heart failure: Code(s): I50.20 - Unspecified systolic (congestive) heart failure Status: Acute (2) CHF (congestive heart failure): Qualifiers: Heart failure chronicity: unspecified Heart failure type: unspecified Qualified Code(s): I50.9 - Heart failure, unspecified Code(s): I50.9 - Heart failure, unspecified Status: Inactive Plan CHF exacerbation, improving Leg and scrotal edema markedly improved CXR showed pulm edema ECHO showed EF 35-40% Continue lasix PO 40mg po bid per cardiology Metoprolol 25mg, Jardiance 10mg cardiology on board and titrating cardiac meds Elevated troponin flat troponin ECHO no wall regional motion abnormalities cardiology evaluated and no concern for ACS trend Lumbar levoscoliosis with severe spondylosis Disc herniation at T11 adn T12 with 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 Back pain with progressive Lower extremities weakness Patient noted he has been losing strength in the lower extremities progressively over the past 6 months MRI total spine reviewed Noted he has been evaluated by neurosurgery at [facility] in the past However neurology has been consulted to seek their opinion on further neurosurgery need monitor PT eval recommended SNF Placement Iron deficiency anemia r/o GI bleed Hb 9.4 and Isat 11 s/pIV iron 1000/1000mg Occult blood stool positive GI evaluated and noted that since patient does not overt Gi bleed, no intervention needed for now monitor HTN titrate home meds with clinical case DM2 SSI with accucheks adjust with clinical course CKD Cr 1.8, which is baseline DVT prophylaxis hold Lovenox due to positive occult blood PT recommends SNF placement awaiting placement Subjective Date/time seen: 12/19/23 15:29 Interval history: No acute events overnight. Patient reports of tiredness and wanted to be in hospice. Discussed with with his daughter who also wanted the patient to be in hospice. Hospice has been consulted, pending evaluation. Review of Systems Review of Systems: Unable to do review of systems as patient is a poor historian Exam Narrative: General: alert and comfortable Eyes: EOMI, PERRLA ENNT External ears normal, Neck is supple, no masses, Respiratory systems: Clear to auscultation Cardiovascular S1, S2, normal rhythm, no murmur, rub, or gallop; no thrill or palpable murmurs on palpation. Gastrointestinal: soft, non-tender, and non-distended abdomen with no masses; BS present Skin: bilateral lower extremities edema with erythema and wounds on the toes, likely from blisters, scrotal edema Musculoskeletal: no abnormality and no tenderness, normal ROM Neurologic: Alert and oriented x3, power 1/5 lower extremities Objective Data Vital Signs Vital Signs: Vital Signs - 24 hr 12/18/23 15:36 12/18/23 16:00 12/18/23 17:56 Temperature 97.7 F Pulse Rate 75 78 82 Respiratory Rate 18 Blood Pressure 140/75 Pulse Oximetry 96 Oxygen Delivery 12/18/23 19:43 12/18/23 20:00 12/18/23 20:00 Temperature 98.6 F Pulse Rate 76 74 Respiratory Rate 20 Blood Pressure 130/61 Pulse Oximetry 93 Oxygen Delivery Room Air 12/18/23 22:24 12/19/23 00:00 12/19/23 04:00 Temperature 96.8 F L Pulse Rate 64 77 84 Respiratory Rate 20 Blood Pressure 139/68 Pulse Oximetry 90 Oxygen Delivery 12/19/23 04:18 12/19/23 08:46 12/19/23 08:04 Temperature 97.7 F Pulse Rate 73 78 80 Respiratory Rate 20 Blood Pressure 159/79
[2023-12-19 16:55] LABS: Glucose Point of Care 151 mg/dl (65-105)
[2023-12-20] MEDS: oxyCODONE/ACETAMINOPHEN (*CRX) 5-325 MG TABLET 1 TABLET PO ×3 (02:10→16:32)
[2023-12-20 03:02] VITALS: BP 111/48; PULSE 65; RESP 20; TEMP 36.5; O2SAT 92
[2023-12-20 04:18] LABS: Glucose Point of Care 199 mg/dl (65-105)
[2023-12-20 08:00] VITALS: PULSE 68; RESP 20; O2SAT 93
[2023-12-20 08:53] LABS: Glucose Point of Care 116 mg/dl (65-105)
[2023-12-20] MEDS: hydrALAZINE 10 MG TABLET PO ×3 (09:09→18:13)
[2023-12-20] MEDS: PANTOPRAZOLE SODIUM IV 40 MG VIAL IV PUSH (09:09)
[2023-12-20 09:10] VITALS: PULSE 65
[2023-12-20] MEDS: FINASTERIDE 5 MG TABLET PO (09:10)
[2023-12-20] MEDS: METOPROLOL SUCCINATE EXT REL 25 MG TABCR PO (09:10)
[2023-12-20] MEDS: levoFLOXacin 500 MG TABLET PO (09:10)
[2023-12-20] MEDS: FUROSEMIDE 40 MG TABLET PO ×2 (09:10→18:13)
[2023-12-20] MEDS: TAMSULOSIN HCL 0.4 MG CAPSULE PO (09:10)
[2023-12-20] MEDS: EMPAGLIFLOZIN 10 MG TABLET PO (09:11)
[2023-12-20] MEDS: ASPIRIN 81 MG ENTERIC TABLET PO (09:11)
[2023-12-20] MEDS: ISOSORBIDE DINITRATE 10 MG TABLET PO ×3 (09:11→18:13)
[2023-12-20] MEDS: ATORVASTATIN 20 MG TABLET PO (09:11)
[2023-12-20 11:58] LABS: Glucose Point of Care 132 mg/dl (65-105)
--- NOTE | 2023-12-20 13:39 | PM.DS ---
DS: Admitting Diagnosis Discharge Date 12/20/2023 Admitting Diagnosis testicular swelling DS: Summary Hospital Course Hospital Course: 83-year-old male past medical history of CHF, chronic wounds, type 2 diabetes, hypertension presented to the ED on account of worsening scrotal swelling. Patient is a poor history historian and unable to provide a clear history other then he was brought in due to worsening scrotal swelling. Noted he is wheelchair bound. ER evaluation notable for temperature 98.5?, rate 72, respiratory rate 18, saturating % on room blood pressure 137/75. White count 13.3, hemoglobin 8.8, MCV 78.6, creatinine 2.1 which is baseline, troponin 0.122 increased to 0.128. Chest x-ray showed mild pulmonary edema. Patient is admitted for further evaluation care. undergo a GI evaluation noted, placed on diuresis, troponin is flat and suspicion of acute syndrome. Cardiology was consulted. Advised to continue the furosemide. Started Toprol XL 25 mg daily and Jardiance 10 mg daily. Patient's lisinopril was suspended and we advised not to continue. Troponin is flat and no suspicious of ACS. Patient was put on levofloxacin due to unspecified source of infection but currently no fever and no constitutional symptoms, so we discontinued levofloxacin upon discharge. Patient makes the wound decision and he reports of being tired and wanted to be in hospice. Without hospice evaluated the patient and patient has been currently discharged with hospice at home. Status at Discharge Cognitive/behavioral status at discharge: Stable Time Spent with Patient Time attestation: Total time spent providing and/or coordinating discharge services: 45 minute DS: Data Data Completed and Pending Labs on day of discharge: Labs from last 24 hours 12/20/23 12/20/23 12/19/23 11:50 08:45 20:38 POC Capillary Glucose 132 H 116 H 199 H 12/19/23 16:52 POC Capillary Glucose 151 H Discharge Plan Discharge Attending physician on discharge: Cash Garcia Consulting providers: Kayla Martínez; Shady Strange; Antoine Hernandez Discharging Clinician: Cash Garcia Anticipated Discharge Date/Time: 12/20/23 13:31 Patient Disposition: Hospice - Home Activity: as tolerated Diet: regular Patient Instructions: Metoprolol (By mouth), Empagliflozin (By mouth), Heart Failure (GEN), Walter Catheter Placement and Care (DC), Hypercoagulation (GEN), Edema (GEN), Blood Thinners (GEN), High Troponin Levels (GEN) Stand Alone Forms: General Discharge Information Follow-up/Referrals: Kayla Martínez APN-C [Advanced Practice Nurse] - Call for Appointment Discharge Medications: New isosorbide dinitrate 10 mg Tablet 10 mg PO TID Qty: 30 0RF hydralazine 10 mg Tablet 10 mg PO TID Qty: 90 0RF polyethylene glycol 3350 [Miralax] 17 gram Powder In Packet 17 g PO QAM PRN (Reason: Constipation) Qty: 30 0RF metoprolol succinate [Toprol XL] 25 mg Tablet Extended Release 24 Hr 25 mg PO QAM Qty: 30 0RF Continued tamsulosin 0.4 mg capsule 0.4 mg PO DAILY albuterol sulfate 90 mcg/actuation HFA aerosol inhaler 1 - 2 puff inhalation Q4H PRN (Reason: Shortness Of Breath Or Wheezing) furosemide 20 mg tablet 20 mg PO DAILY metformin 500 mg tablet 500 mg PO DAILY Rx Instructions: 3 tabs po qam and 2 tab po with evening meal finasteride 5 mg tablet 5 mg PO DAILY potassium chloride 20 mEq tablet,ER particles/crystals 20 meq PO DAILY Discontinued aspirin 81 mg Tablet 81 mg PO DAILY levofloxacin 500 mg tablet 500 mg PO DAILY 10 Days Qty: 10 0RF Rx Instructions: last dose scheduled 12/21/23 lisinopril 40 mg tablet 80 mg PO DAILY atorvastatin 20 mg tablet 20 mg PO DAILY Date of admission: 12/15/23 02:20 Primary Care Provider: Terese,Alex Ramos Admitting Provider: Ebonie Davis V. Attending physician on adm
[2023-12-20 14:00] VITALS: BP 114/52; PULSE 68; RESP 20; TEMP 36.5; O2SAT 93
[2023-12-20 17:12] LABS: Glucose Point of Care 142 mg/dl (65-105)
== END 2023-12-20 20:50 | disposition hospice, home (50) | DRG 291 ==
LOC: ANHIMU 12-16 01:19 → ANH2MED 12-18 22:21
PROVIDERS: Internal Medicine; Admitting Provider Internal Medicine; PCP Family Medicine; Visit Provider General Practice
DX: I13.0 Hypertensive heart and chronic kidney disease with heart failure and stage 1 through stage 4 chronic kidney disease, or unspecified chronic kidney disease (principal); I50.23 Acute on chronic systolic (congestive) heart failure; N18.30 Chronic kidney disease, stage 3 unspecified; E11.22 Type 2 diabetes mellitus with diabetic chronic kidney disease; D63.1 Anemia in chronic kidney disease; D50.9 Iron deficiency anemia, unspecified; K59.03 Drug induced constipation; T40.2X5A Adverse effect of other opioids, initial encounter; R79.89 Other specified abnormal findings of blood chemistry; R19.5 Other fecal abnormalities; M47.812 Spondylosis without myelopathy or radiculopathy, cervical region; M47.816 Spondylosis without myelopathy or radiculopathy, lumbar region; M51.24 Other intervertebral disc displacement, thoracic region; G89.29 Other chronic pain; Z79.82 Long term (current) use of aspirin; Z51.5 Encounter for palliative care
CPT/HCPCS: 36415; 71045; 72141; 72146; 72148; 76775; 80048; 80053; 82274; 82948; 83036; 83540; 83550; 83605; 83735; 84100; 84484; 85025; 85610; 85730; 93306; 97110; 97162; 97166; 97530; A9270; J1650; J1756; J1815; J1940; J2470; J7050